=== PATIENT | female | born 1940 | race African-American/Black ===

== ENCOUNTER 2020-07-16 09:19 | Inpatient (IN) | payer MEDICARE, BC, OTHER ==
[2020-07-16] MEDS ORDERED: Ondansetron PF 4 MG/2 ML Vial ONE (09:45)
[2020-07-16 09:55] LABS: Bacteria/HPF None Seen HPF (None Seen); Bilirubin Negative (Negative); Blood, Urine Negative (Negative); Clarity Clear (Clear); Glucose, Urine (Dipstick) Normal (Negative); Ketone, Urine Negative (Negative); Leukocyte 250 Leu/uL (Negative); Nitrite Negative (Negative); Protein, Urine (Dipstick) 100 mg/dL (Neg-Trace); RBC/HPF 0-3 HPF (0-3); Specific Gravity, Urine 1.011 (1.002-1.036); Squamous Epithelial 0-3 HPF (0-3); Urobilinogen Normal mg/dL (Less than 2)
[2020-07-16 09:57] LABS: #Eosinphils 0.2 thou/uL (0.0-0.7); #Lymphocytes 2.3 thou/uL (1.20-3.40); #Monocytes 0.2 thou/uL (0.11-0.59); #Neutrophils 2.6 thou/uL (1.40-6.50); %Basophils 0.2 % (0.0-1.0); %Eosinophils 3.8 % (0.0-10.0); %Lymphocytes 43.5 % (21.0-51.0); %Monocytes 3.8 % (0.0-10.0); %Neutrophils 48.8 % (42.0-75.0); Hemoglobin 7.1 g/dL (12.0-16.0); Mean Corpuscular HGB CONC 32.9 g/dL (32.0-36.0); Mean Corpuscular Volume 97.1 fL (78.0-98.0); Mean Platelet Volume 7.9 fL (7.4-10.4); Platelet Count 144 thou/uL (130-400); RBC Distribution Width 16.5 % (11.5-14.5); Red Blood Cell (RBC) Count 2.21 mill/uL (4.20-5.40); White Blood Cell (WBC) Count 5.3 thou/uL (4.8-10.8)
--- NOTE | 2020-07-16 09:57 | CT ---
EXAM: CT brain without contrast HISTORY: Dizziness and fall COMPARISON: None TECHNIQUE: Multiple contiguous axial images were obtained and a CT of the brain without contrast. FINDINGS: Calcifications are seen in the basal ganglia and in the cerebellum bilaterally. The brain i s normal in morphology and attenuation without focal lesions or confluent areas of infarction. There is no evidence of hydrocephalus, intracranial hemorrhage, or extra-axial fluid collection. The calvarium and overlying soft tissues are unremarkable. The visualized paranasal sinuses and masto id air cells are well aerated. IMPRESSION: No evidence of acute intracranial abnormality
[2020-07-16 10:02] LABS: INR-International Normal Ratio 1.5; PTT 45.3 sec (22.9-36.1); Prothrombin Time 18.3 sec (12.0-14.7)
--- NOTE | 2020-07-16 10:04 | RAD ---
EXAM: Single view of the chest HISTORY: Dizziness, nausea, and vomiting COMPARISON: 04/18/2011 FINDINGS: Single view of the chest shows an enlarged cardiomediastinal silhouette. There are diffuse mixed multifocal opacities in the lungs. There may be a small left pleural effusion. No acute osseous abnormality. IMPRESSION: 1. Multifocal infiltrates 2. Small left pleural effusion
[2020-07-16] MEDS ORDERED: Meclizine HCl 25 MG TAB ONE (10:07)
[2020-07-16 10:14] LABS: ALT (SGPT) 9 U/L (8-55); AST (SGOT) 25 U/L (5-34); Albumin 2.8 g/dL (3.4-4.8); Alkaline Phosphatase 43 U/L (40-110); Anion Gap 20 mmol/L (10-20); BUN (Urea Nitrogen) 19 mg/dL (9.8-20.1); Bilirubin, Total 0.5 mg/dL (0.2-1.2); CK (CPK) 34 U/L (29-168); Calc. Creatinine Clearance 0 mL/min (70-130); Calcium 9.4 mg/dL (7.8-10.44); Carbon Dioxide 19 mmol/L (23-31); Chloride 101 mmol/L (98-107); Estimated GFR-MDRD 52; Glucose 189 mg/dL (83-110); Potassium 3.9 mmol/L (3.5-5.1); Sodium 136 mmol/L (136-145)
[2020-07-16 10:35] LABS: Globulin 10.1 g/dL (2.4-3.5); Protein, Total 12.9 g/dL (5.8-8.1)
[2020-07-16] MEDS ORDERED: Ondansetron PF 4 MG/2 ML Vial IVP PRN (14:30)
[2020-07-16] MEDS ORDERED: Acetaminophen 325 MG TAB PO PRN (14:30)
[2020-07-16] MEDS ORDERED: Dextrose 5% in Water 1,000 ML IV PRN (14:39)
[2020-07-16] MEDS ORDERED: HumaLOG 300 UNITS/3 ML VIAL SC PRN (14:39)
[2020-07-16] MEDS ORDERED: Dextrose 50% Abboject 50 ML SYRINGE SLOW IVP PRN (14:39)
[2020-07-16] MEDS ORDERED: GoLYTELY 4,000 ml Bottle PO SCH (18:00)
[2020-07-16 18:09] LABS: Hemoglobin 7.5 g/dL (12.0-16.0)
[2020-07-16 18:10] LABS: Reticulocyte Count 1.6 % (0.5-1.5)
[2020-07-16 18:29] LABS: Iron 34 ug/dL (50-170); Iron Binding Capacity, Total 211 mcg/dL (265-497)
[2020-07-16 18:59] LABS: Ferritin 28.47 ng/mL (10-291)
--- NOTE | 2020-07-16 19:56 | HP ---
CHIEF COMPLAINT: Dizziness. HISTORY OF PRESENT ILLNESS: The patient is a 79-year-old female with past medical history of hypertension, diabetes mellitus, and asthma, who presented to the hospital with complaints of dizziness. The patient stated that over the past week, she has been experiencing easy fatigue with minimal activity. Yesterday, she noticed that she was feeling lightheaded whenever she tried to stand up. The dizziness lasted for few minutes of each episode. She denies shortness of breath, palpitations, chest pain, nausea, or vomiting. The patient stated that she has been experiencing intermittent episodes of black stools over the past month as well. In the ER, the patient was found to be anemic with hemoglobin level of 7.1. Her fecal occult blood test was positive. The patient denied any history of colonoscopy in the past. REVIEW OF SYSTEMS: Negative except as noted above. PAST MEDICAL HISTORY: As noted above. PAST SURGICAL HISTORY: Includes hysterectomy and cholecystectomy. SOCIAL HISTORY: The patient lives with her family. Denies smoking, alcohol, or illicit drug use. FAMILY HISTORY: Noncontributory to the current presentation. ALLERGIES: THE PATIENT IS ALLERGIC TO PENICILLIN. PHYSICAL EXAMINATION: GENERAL: The patient is alert and oriented x3. HEENT: Head is normocephalic and atraumatic. Extraocular muscles are intact. NECK: Supple. CHEST: Clear to auscultation bilaterally. CARDIOVASCULAR: Normal S1, S2. Regular rate and rhythm. No murmurs, rubs, or gallops. ABDOMEN: Soft, nontender, nondistended. NEUROLOGICAL: Nonfocal. ASSESSMENT: 1. Anemia, likely due to GI bleeding. 2. Hypertension. 3. Diabetes mellitus. PLAN: The patient will be admitted to the hospital for further evaluation. We will check hemoglobin level q.6 hours. We will transfuse 1 unit of packed RBC. GI service consulted to evaluate the patient for possible GI bleeding. SCDs for DVT prophylaxis. Reconcile her home medications once they are verified. Job ID: [id number]
--- NOTE | 2020-07-17 00:25 | CON ---
DATE OF CONSULTATION: 07/16/2020 CHIEF COMPLAINT: Dizziness, weakness. HISTORY OF PRESENT ILLNESS: Ms. Blankenship is a 79-year-old woman, who was sent to the emergency room by ambulance after her family found her to be dizzy and weak. She was found in the emergency room to have severe anemia with a hemoglobin of 7.1. She has had no nausea or vomiting with this. No abdominal pain or diarrhea or constipation. No black stools or red stools. She was noted to have Hemoccult-positive stool in the emergency room. She has not been on blood thinners or aspirin. She did have one episode of vomiting early this morning. She has had no chest pain or shortness of breath. Last bowel movement was yesterday evening and was brown and formed. PAST MEDICAL HISTORY: Diabetes mellitus, hypertension, anemia. PAST SURGICAL HISTORY: Hysterectomy, cholecystectomy. FAMILY HISTORY: Negative for GI malignancies. SOCIAL HISTORY: No alcohol, tobacco, or drugs. ALLERGIES: PENICILLIN. MEDICATIONS: At home include metformin and amlodipine. She has not been on NSAIDs. REVIEW OF SYSTEMS: Negative x10 systems reviewed except as stated in history of present illness. PHYSICAL EXAMINATION: VITAL SIGNS: Temperature 98.0, pulse has been in the 105 to 111 range, blood pressure 159/79. GENERAL: She is in no acute distress. Alert and oriented x3. HEENT: Eyes have no scleral icterus. Oropharynx is clear without lesions. No cervical or supraclavicular lymphadenopathy. LUNGS: Clear to auscultation bilaterally. HEART: Slightly tachycardic. S1-S2 without murmur. ABDOMEN: Soft, nontender, and nondistended. Bowel sounds are present. EXTREMITIES: No lower extremity edema. RECTAL: Reveals no stool in the rectal vault. LABORATORY DATA: White blood cell count 5.3, hemoglobin was 7.1 with an MCV of 97, and platelets of 144. Reticulocyte count was 1.6. INR 1.5. Creatinine 1.22. Iron 34, TIBC 211, ferritin 28.4, bilirubin 0.5, AST 25, ALT 9, alkaline phosphatase 43, albumin of 2.8 with a total protein of 12.9 and globulin of 10.1, B12 of 563, folate 10.8. IMPRESSION: 1. Anemia with Hemoccult-positive stool. She was symptomatic with orthostatic symptoms this morning, but otherwise she has had no overt gastrointestinal bleeding. Her iron studies are most consistent with anemia of chronic disease. However, with a ferritin of only 28, iron deficiency cannot be ruled out. Therefore, GI investigation should be performed. Her B12 and folate are normal and her reticulocyte count is elevated. Her MCV is 97. 2. Elevated globulin at 10.1. Multiple myeloma is a consideration. I will check urine protein electrophoresis. 3. Abnormal liver function test. Her albumin is low at 2.8. Her INR is elevated at 1.5 and while her transaminases are normal, her AST is more than twice her ALT which often this ratio is seen with cirrhosis. Her bilirubin and alkaline phosphatase are normal. Her platelets are on the lower end at 144, which could be consistent with portal hypertension. There is no known history of chronic liver disease or risk factors. However, these findings could indicate an underlying cirrhosis. I will check an ultrasound of her liver. Also, we will request viral hepatitis screen. The low albumin could be nutritional or could be related to whatever process is causing this elevated globulin level. RECOMMENDATIONS: 1. EGD and colonoscopy tomorrow. 2. I will check an ultrasound and viral hepatitis screen. 3. Check urine protein electrophoresis. Job ID: [id number]
[2020-07-17 06:39] LABS: Anion Gap 17 mmol/L (10-20); BUN (Urea Nitrogen) 17 mg/dL (9.8-20.1); Calc. Creatinine Clearance 32 mL/min (70-130); Calcium 9.2 mg/dL (7.8-10.44); Carbon Dioxide 25 mmol/L (23-31); Chloride 103 mmol/L (98-107); Estimated GFR-MDRD 48; Glucose 82 mg/dL (83-110); Potassium 3.6 mmol/L (3.5-5.1); Sodium 141 mmol/L (136-145)
[2020-07-17 06:46] LABS: #Eosinphils 0.1 thou/uL (0.0-0.7); #Lymphocytes 1.6 thou/uL (1.20-3.40); #Monocytes 0.3 thou/uL (0.11-0.59); #Neutrophils 2.7 thou/uL (1.40-6.50); %Basophils 0.3 % (0.0-1.0); %Eosinophils 2.4 % (0.0-10.0); %Lymphocytes 34.1 % (21.0-51.0); %Monocytes 5.9 % (0.0-10.0); %Neutrophils 57.3 % (42.0-75.0); Hemoglobin 6.4 g/dL (12.0-16.0); Mean Corpuscular HGB CONC 32.3 g/dL (32.0-36.0); Mean Corpuscular Hemoglobin 31.8 pg (27.0-31.0); Mean Corpuscular Volume 98.2 fL (78.0-98.0); Mean Platelet Volume 7.5 fL (7.4-10.4); Platelet Count 119 thou/uL (130-400); RBC Distribution Width 16.7 % (11.5-14.5); Red Blood Cell (RBC) Count 2.02 mill/uL (4.20-5.40); White Blood Cell (WBC) Count 4.8 thou/uL (4.8-10.8)
[2020-07-17 06:47] LABS: MDiff Complete? YES; Platelet Morphology Comment Appears Decreased; Rouleaux Formation SLIGHT = 1-5 cells (100X) (None Seen)
[2020-07-17] MEDS ORDERED: Calcium Carbonate 500 MG ChewTAB PO PRN (08:04)
[2020-07-17] MEDS ORDERED: Diabetic Tussin 200 MG/10 ML UDCUP PO PRN (08:04)
[2020-07-17] MEDS ORDERED: Loperamide HCl 2 MG CAP PO PRN (08:04)
[2020-07-17] MEDS ORDERED: Ondansetron ODT 4 MG TAB PO PRN (08:04)
[2020-07-17] MEDS ORDERED: Labetalol HCl 100 MG/20 ML VIAL SLOW IVP PRN (08:04)
[2020-07-17] MEDS ORDERED: Bisacodyl 10 MG SUPP PR PRN (08:04)
[2020-07-17] MEDS ORDERED: Senokot S 8.6-50 MG TAB PO PRN (08:04)
[2020-07-17] MEDS ORDERED: Cepastat Lozenges 1 LOZ PO PRN (08:04)
[2020-07-17] MEDS ORDERED: Zolpidem Tartrate 5 MG TAB PO PRN (08:04)
[2020-07-17] MEDS ORDERED: Loratadine 10 MG TAB PO PRN (08:04)
[2020-07-17] MEDS ORDERED: HYDROcodone/Acetaminophen 5/325 mg Tablet PO PRN (08:04)
[2020-07-17] MEDS ORDERED: hydrALAZINE 20 MG/ML VIAL SLOW IVP PRN (08:04)
[2020-07-17] MEDS ORDERED: Sodium Chloride 0.65% Nasal 44 ML BOT EA NARE PRN (08:04)
--- NOTE | 2020-07-17 08:26 | ULT ---
US Hepatic Doppler History: Abnormal liver function tests Comparison: None. Findings: Real-time grayscale color and spectral analysis of the liver was performed. Hepatic echotexture is mildly increased without mass. Normal pulsatility of the aorta and IVC. Portal vein is patent with antegrade flow. Hepatic veins are patent with antegrade flow. Common duct is normal measuring 3 mm. Spleen measures 8 cm in length. Patent splenic artery and vein. Gallbladder not visualized. Impression: Mild hepatic steatosis otherwise normal exam.
[2020-07-17] MEDS: Amlodipine 5 MG TAB PO SCH (08:56)
[2020-07-17] MEDS: Pantoprazole 40 MG VIAL IVP SCH ×2 (08:56→22:06)
[2020-07-17] MEDS ORDERED: Amlodipine 5 MG TAB PO SCH (09:00)
[2020-07-17] MEDS ORDERED: Lidocaine 1% PF 5 ML VIAL ONE (09:27)
[2020-07-17] MEDS ORDERED: PROPOFOL 200 MG/20 ML VIAL ONE (09:27)
--- NOTE | 2020-07-17 10:13 | PDOC.HOSPP ---
- Subjective Encounter Date: 07/17/20 Encounter Time: 07:30 Subjective: Patient is feeling weak fatigue tired, does not have any melena or hematochezia, she had preparation for colonoscopy, - Objective Vital Signs & Weight: Vital Signs (12 hours) Temp Pulse Resp BP Pulse Ox 07/17/20 08:56 86 07/17/20 08:00 98 07/17/20 07:28 98.7 F 86 20 171/88 H 98 07/17/20 04:00 98.2 F 86 18 146/80 H 97 07/17/20 00:00 97.9 F 102 H 16 166/85 H 100 Weight Weight 124 lb I&O: 07/16/20 07/17/20 07/18/20 06:59 06:59 06:59 Intake Total 360 0 Balance 360 0 Result Diagrams: 07/17/20 05:57 07/17/20 05:57 Additional Labs: Accuchecks 07/17/20 04:29 POC Glucose 77 Radiology Reviewed by me: Yes (Right upper quadrant ultrasound showing hepatic steatosis) Hospitalist ROS - Review of Systems Constitutional: reports: weakness, malaise. denies: fever, chills, sweats, other Respiratory: denies: cough, dry, shortness of breath, hemoptysis, SOB with excertion, pleuritic pain, sputum, wheezing, other Cardiovascular: denies: chest pain, palpitations, orthopnea, paroxysmal noc. dyspnea, edema, light headedness, other Gastrointestinal: denies: nausea, vomiting, abdominal pain, diarrhea, constipation, melena, hematochezia, other Genitourinary: denies: dysuria, frequency, incontinence, hematuria, retention, other Musculoskeletal: denies: neck pain, shoulder pain, arm pain, back pain, hand pain, leg pain, foot pain, other Skin: denies: rash, lesions, yrn, bruising, other - Medication Medications: Active Medications Generic Name Dose Route Start Last Admin Trade Name Freq PRN Reason Stop Dose Admin Amlodipine Besylate 5 mg 07/17/20 09:00 07/17/20 08:56 Amlodipine 5 Mg Tab PO 5 mg DAILY MALCOM Administration Pantoprazole Sodium 40 mg 07/17/20 09:00 07/17/20 08:56 Pantoprazole 40 Mg Vial IVP 40 mg Q12HR MALCOM Administration Sodium Chloride 10 ml 07/17/20 09:00 07/17/20 08:56 Flush - Normal Saline 10 Ml Syringe IVF 10 ml Q12HR MALCOM Administration - Exam General Appearance: NAD, awake alert Eye: PERRL, anicteric sclera Eye - other findings: Pale mucous membrane, pale conjunctiva ENT: no oropharyngeal lesions, moist mucosa Neck: supple, symmetric, no JVD, no thyromegaly Heart: RRR, no murmur, no gallops, no rubs Respiratory: no wheezes, no rales, no ronchi Gastrointestinal: soft, non-tender, non-distended, normal bowel sounds Extremities: no clubbing, no edema Skin: normal turgor, no lesions Neurological: no focal deficits Musculoskeletal: normal tone, normal strength Psychiatric: normal affect, normal behavior Hosp A/P (1) Symptomatic anemia Code(s): D64.9 - ANEMIA, UNSPECIFIED Status: Acute Plan: Today her hemoglobin reduced so we will give her 1 unit of blood transfusion, patient is plan for upper endoscopy and colonoscopy, will repeat CBC tomorrow (2) Guaiac positive stools Status: Acute Plan: Patient is already planned for EGD and colonoscopy by GI (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 - HYPERGAMMAGLOBULINEMIA, UNSPECIFIED Status: Acute Plan: Suspected multiple myeloma so we are going to check urine protein electrophoresis and serum protein electrophoresis, will repeat labs tomorrow (4) Chronic kidney disease (CKD), stage III (moderate) Code(s): N18.30 - CHRONIC KIDNEY DISEASE, STAGE 3 UNSPECIFIED Status: Chronic Qualifiers: Chronic kidney disease stage 3 subtype: stage 3a (GFR 45-59) Qualified Code(s): N18.31 - Chronic kidney disease, stage 3a (5) UTI (urinary tract infection) Status: Suspected Qualifiers: Urinary tract infection type: acute cystitis Plan: We will follow-up on culture result, if culture positive then will consider starting antibiotic therapy at this point patient does not have any symptoms associated with UTI - Plan old records reviewed/req Transfuse 1 unit of PRBC and repeat labs tomorrow and follow-up on endoscopy result
[2020-07-17 12:02] LABS: SARS-CoV-2 MS2 Positive; SARS-CoV-2 N Gene Negative; SARS-CoV-2 S Gene Negative; SARS-CoV-2 by NAA Not Detected (NotDetected); SARS-CoV-2 orf1ab Negative
[2020-07-17 12:03] LABS: SARS-CoV-2 MS2 Positive; SARS-CoV-2 N Gene Negative; SARS-CoV-2 S Gene Negative; SARS-CoV-2 by NAA Not Detected (NotDetected); SARS-CoV-2 orf1ab Negative
[2020-07-17] MEDS ORDERED: FLU VACC QS2020-21(65YR UP)/PF 240 MCG/0.7 ML SYRINGE IM ONE (15:30)
[2020-07-17] MEDS ORDERED: Iopamidol-370 76% 500 ML 1 ML ONE (15:54)
[2020-07-17] MEDS ORDERED: Promethazine HCl 25 MG/ML VIAL SLOW IVP PRN (16:38)
[2020-07-17] MEDS ORDERED: Promethazine HCl 25 MG/ML VIAL IM PRN (16:38)
[2020-07-17] MEDS ORDERED: Ondansetron HCl/PF 4 MG/2 ML Vial IVP PRN (16:38)
--- NOTE | 2020-07-17 20:07 | OP ---
DATE OF PROCEDURE: 07/17/2020 PROCEDURES PERFORMED: Esophagogastroduodenoscopy and colonoscopy with snare polypectomy and biopsy and submucosal injection. PREOPERATIVE DIAGNOSES: Anemia and blood in the stool. DESCRIPTION OF PROCEDURE: Informed consent was obtained from the patient. She was sedated with total intravenous anesthesia. The bite block was placed and the endoscope was advanced easily to the second portion of the duodenum and retroflexion was performed in the stomach. The esophagus was normal. The GE junction was normal. The stomach was normal including retroflexed views. The pylorus and first and second portions of the duodenum were normal. The air was suctioned from the stomach. The patient was turned around. Rectal exam was performed and was normal. The colonoscope was advanced to the cecum, where the ileocecal valve and appendiceal orifice were clearly identified. There was a very sharp angulation of flexure around the splenic flexure, which made somewhat technically difficult advancement of the endoscope to the cecum. The preparation quality was good. There was [id number] diverticulosis throughout the colon. I removed a 4 mm polyp from the transverse colon with a cold snare polypectomy. I remove a 7 mm sessile polyp from the transverse colon by cold snare polypectomy. There was a visible vessel protruding looked like it would be high risk for rebleeding in the polypectomy base and therefore I placed a hemoclip directly over the polypectomy base and vessel with good hemostasis confirmed. There was a 3 cm sessile polyp in the distal sigmoid between 20 and 25 cm, which was biopsied multiple times. Tattoo was placed at the distal end of the polyp. Moderate internal hemorrhoids. RECOMMENDATIONS: 1. Await histopathology. 2. Surgical consultation. Job ID: [id number]
--- NOTE | 2020-07-17 22:02 | CT ---
CT OF CHEST AND ABDOMEN AND PELVIS PERFORMED WITH INTRAVENOUS CONTRAST ENHANCEMENT: 07/17/20 HISTORY: Sigmoid colon mass. The lungs are clear of any infiltrative process. Some reticular scarring in the basis. No pulmonary nodules or pleural effusions. There is no significant mediastinal, hilar or axillary lymphadenopathy. The thoracic aorta is normal in caliber. CT OF ABDOMEN PERFORMED WITH CONTRAST ENHANCEMENT: 07/17/20 There are fatty changes of the liver. No discrete mass. The liver is enlarged at 21.6 cm. The spleen is within normal limits. Pancreas shows no mass. The gallbladder has been removed. Right and left adrenal glands are normal. Tiny hypodensities involving the kidneys are statistically most likely small cysts. There is no significant periaortic or mesenteric adenopathy. CT OF PELVIS PERFORMED WITH CONTRAST ENHANCEMENT: There is an umbilical hernia containing bowel without obstruction. There is diverticulosis of the col on. Wall thickening seen in the sigmoid colon region although it is difficult to show a discrete well defined mass. Colon was not opacified with oral contrast Appendix is normal. No significant pelvic l ymphadenopathy. Small subcentimeter deep pelvic nodes are seen. IMPRESSION: 1. Sigmoid colon is not well opacified. It is difficult to show a discrete mass although there a ppears to be more wall thickening distally. There is also diverticular disease noted in the descendin g and sigmoid region. 2. Paraumbilical hernia containing transverse colon, but no obstruction. 3. Fatty changes of the liver which is slightly enlarged. POS: OFF
[2020-07-18 06:14] LABS: #Eosinphils 0.1 thou/uL (0.0-0.7); #Lymphocytes 1.6 thou/uL (1.20-3.40); #Monocytes 0.3 thou/uL (0.11-0.59); #Neutrophils 3.3 thou/uL (1.40-6.50); %Basophils 0.2 % (0.0-1.0); %Eosinophils 2.6 % (0.0-10.0); %Lymphocytes 29.8 % (21.0-51.0); %Monocytes 4.9 % (0.0-10.0); %Neutrophils 62.4 % (42.0-75.0); Hemoglobin 6.7 g/dL (12.0-16.0); Mean Corpuscular HGB CONC 33.8 g/dL (32.0-36.0); Mean Corpuscular Hemoglobin 32.4 pg (27.0-31.0); Mean Platelet Volume 7.1 fL (7.4-10.4); Platelet Count 108 thou/uL (130-400); RBC Distribution Width 16.6 % (11.5-14.5); Red Blood Cell (RBC) Count 2.06 mill/uL (4.20-5.40); White Blood Cell (WBC) Count 5.2 thou/uL (4.8-10.8)
[2020-07-18 06:24] LABS: Albumin 2.4 g/dL (3.4-4.8); Anion Gap 18 mmol/L (10-20); BUN (Urea Nitrogen) 14 mg/dL (9.8-20.1); Bilirubin, Total 1.2 mg/dL (0.2-1.2); Calc. Creatinine Clearance 33 mL/min (70-130); Calcium 8.7 mg/dL (7.8-10.44); Carbon Dioxide 24 mmol/L (23-31); Chloride 100 mmol/L (98-107); Estimated GFR-MDRD 50; Glucose 87 mg/dL (83-110); Potassium 3.5 mmol/L (3.5-5.1); Protein, Total 11.8 g/dL (6.0-8.3); Sodium 138 mmol/L (136-145)
[2020-07-18 06:25] LABS: ALT (SGPT) 9 U/L (8-55); AST (SGOT) 22 U/L (5-34); Alkaline Phosphatase 32 U/L (40-110); Globulin 9.4 g/dL (2.4-3.5)
[2020-07-18] MEDS: Amlodipine 5 MG TAB PO SCH (09:04)
[2020-07-18] MEDS: Pantoprazole 40 MG VIAL IVP SCH ×2 (09:06→20:41)
--- NOTE | 2020-07-18 09:44 | PDOC.HOSPP ---
- Subjective Encounter Date: 07/18/20 Encounter Time: 08:00 Subjective: Patient seen and examined. No new complaints. No overnight events - Objective Vital Signs & Weight: Vital Signs (12 hours) Temp Pulse Resp BP Pulse Ox 07/18/20 09:04 83 07/18/20 08:00 98 07/18/20 04:00 98.6 F 83 18 124/70 98 07/18/20 00:00 98.8 F 86 18 140/76 98 Weight Weight 124 lb I&O: 07/17/20 07/18/20 07/19/20 06:59 06:59 06:59 Intake Total 360 0 240 Balance 360 0 240 Result Diagrams: 07/18/20 05:39 07/18/20 05:39 Additional Labs: Accuchecks 07/18/20 07/17/20 07/17/20 05:29 19:46 11:12 POC Glucose 88 144 H 73 07/16/20 07/16/20 11:55 08:38 POC Glucose 97 113 H Radiology Reviewed by me: Yes (CT abdomen and pelvis noted) Hospitalist ROS - Review of Systems Constitutional: denies: fever, chills, sweats, weakness, malaise, other ENT: denies: ear pain, ear discharge, nose pain, nose discharge, nose congestion, mouth pain, mouth swelling, throat pain, throat swelling, other Respiratory: denies: cough, dry, shortness of breath, hemoptysis, SOB with excertion, pleuritic pain, sputum, wheezing, other Cardiovascular: denies: chest pain, palpitations, orthopnea, paroxysmal noc. d yspnea, edema, light headedness, other Gastrointestinal: denies: nausea, vomiting, abdominal pain, diarrhea, constipation, melena, hematochezia, other Genitourinary: denies: dysuria, frequency, incontinence, hematuria, retention, other Musculoskeletal: denies: neck pain, shoulder pain, arm pain, back pain, hand pain, leg pain, foot pain, other - Medication Medications: Active Medications Generic Name Dose Route Start Last Admin Trade Name Freq PRN Reason Stop Dose Admin Amlodipine Besylate 5 mg 07/17/20 09:00 07/18/20 09:04 Amlodipine 5 Mg Tab PO 5 mg DAILY MALCOM Administration Dextrose/Water 25 gm 07/16/20 14:39 07/17/20 11:40 Dextrose 50% Abboject 50 Ml Syringe SLOW IVP 25 gm PRN PRN Administration Hypoglycemia Pantoprazole Sodium 40 mg 07/17/20 09:00 07/18/20 09:06 Pantoprazole 40 Mg Vial IVP 40 mg Q12HR MALCOM Administration Sodium Chloride 10 ml 07/17/20 09:00 07/18/20 09:06 Flush - Normal Saline 10 Ml Syringe IVF 10 ml Q12HR MALCOM Administration - Exam General Appearance: NAD, awake alert Eye: PERRL, anicteric sclera ENT: normocephalic atraumatic, no oropharyngeal lesions Neck: supple, symmetric, no JVD, no thyromegaly Heart: RRR, no murmur, no gallops, no rubs Respiratory: CTAB, no wheezes, no rales, no ronchi Gastrointestinal: soft, non-tender, non-distended, normal bowel sounds Extremities: no clubbing, no edema Skin: normal turgor, no lesions Neurological: no focal deficits Musculoskeletal: normal tone, normal strength, no muscle wasting Psychiatric: normal affect, normal behavior Hosp A/P (1) Symptomatic anemia Code(s): D64.9 - ANEMIA, UNSPECIFIED Status: Acute (2) Guaiac positive stools Status: Acute (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 - HYPERGAMMAGLOBULINEMIA, UNSPECIFIED Status: Acute (4) Chronic kidney disease (CKD), stage III (moderate) Code(s): N18.30 - CHRONIC KIDNEY DISEASE, STAGE 3 UNSPECIFIED Status: Chronic Qualifiers: Chronic kidney disease stage 3 subtype: stage 3a (GFR 45-59) Qualified Code(s): N18.31 - Chronic kidney disease, stage 3a (5) UTI (urinary tract infection) Status: Suspected Qualifiers: Urinary tract infection type: acute cystitis (6) Colon polyps Code(s): K63.5 - POLYP OF COLON Status: Acute (7) Diverticulosis of colon Code(s): K57.30 - DVRTCLOS OF LG INT W/O PERFORATION OR ABSCESS W/O BLEEDING Status: Acute - Plan old records reviewed/req Today we will transfuse 1 unit of PRBC because hemoglobin has not appropriately improved, CT chest abdomen and pelvis reviewed, general surgery has been consulted We will repeat labs tomorrow Diet advancement as tolerated pending general surgery evaluation.
--- NOTE | 2020-07-18 16:21 | PDOC.GSCN ---
Surgery Consult: HPI - Consult details Date: 07/18/20 Time: 16:19 History of present illness: 07/18/20 16:19 Chief complaint-I hear you are here to fix me History of present illness-the patient is a very pleasant 79-year-old - [place] female with a past medical history significant for hypertension, diabetes, anemia and asthma who presented to the hospital with feelings of fatigue and orthostasis. Over the last several weeks, she states that she has felt tired and has a lack of energy. She thought that this was secondary to just "getting old". On the day of presentation, she was doing housework and felt very dizzy while trying to stand up. She did not have any shortness of breath or palpitations. She denied any chest pain. She may or may not of been having some darker colored stools over the past month. She states she knows that she is chronically anemic. She has never had a colonoscopy before. She denies any abdominal pain. Surgery Consult: ROS - Review of Systems ROS unobtainable: other (Negative for 10 system, two-point per system other than HPI) Surgery Consult: PMH Past Medical History: Hypertension, diabetes, asthma, anemia Past Surgical History: Cholecystectomy, hysterectomy - Past Family History Pertinent family history: No family history of colonic malignancies - Past Social History Smoking Status: Never smoker Alcohol Use: none Drug Use History: none Living Situation: Surgery Consult: Exam - Vital signs Vital signs: Vital Signs - Most Recent Temp Pulse Resp BP Pulse Ox 98.6 F 83 18 124/70 98 07/18/20 04:00 07/18/20 09:04 07/18/20 04:00 07/18/20 04:00 07/18/20 08:00 - Physical Exam Additional exam: General-[no acute distress, well-nourished] Head-[normocephalic, atraumatic] HEENT- [EOMI], [PERRLA] Neck-[trachea midline, supple] Lungs-[grossly clear to auscultation], [normal air movement] Heart-[regular regular], [no murmurs] Abdomen-[soft], [nondistended], [nontender], [normal active bowel sounds] Musculosketal-[full range of motion], [no gross deformity] Psychiatric-[good insight, good judgment] Skin-[good turgor, no jaundice] Neuro- [GCS 15], [CN II-XII intact] Surgery Consult: Meds - Medications Medications: Current Medications Acetaminophen (Acetaminophen 325 Mg Tab) 650 mg PO Q4H PRN PRN Reason: Headache/Fever/Mild Pain (1-3) Hydrocodone Bitart/Acetaminophen (Hydrocodone/Acetaminophen 5/325 Mg Tablet) 1 tab PO Q4H PRN PRN Reason: Moderate Pain (4-6) Amlodipine Besylate (Amlodipine 5 Mg Tab) 5 mg PO DAILY MALCOM Last Admin: 07/18/20 09:04 Dose: 5 mg Documented by: Bisacodyl (Bisacodyl 10 Mg Supp) 10 mg KS DAILYPRN PRN PRN Reason: Constipation Calcium Carbonate (Calcium Carbonate 500 Mg Chewtab) 1,000 mg PO Q4H PRN PRN Reason: Heartburn or Indigestion Dextrose/Water (Dextrose 50% Abboject 50 Ml Syringe) 25 gm SLOW IVP PRN PRN PRN Reason: Hypoglycemia Last Admin: 07/17/20 11:40 Dose: 25 gm Documented by: Glucagon (Glucagon 1 Mg/Ml Vial) 1 mg IM PRN PRN PRN Reason: Hypoglycemia Guaifenesin (Diabetic Tussin 200 Mg/10 Ml Udcup) 200 mg PO Q4H PRN PRN Reason: Cough Hydralazine HCl (Hydralazine 20 Mg/Ml Vial) 10 mg SLOW IVP Q4H PRN PRN Reason: SBP > 180 and HR < 70 Dextrose/Water (D5w) 1,000 mls @ 0 mls/hr IV .Q0M PRN PRN Reason: Hypoglycemia Insulin Human Lispro (Humalog 300 Units/3 Ml Vial) 0 units SC .MODERATE SLIDING SC PRN PRN Reason: Moderate Correctional Scale Labetalol HCl (Labetalol Hcl 100 Mg/20 Ml Vial) 20 mg SLOW IVP Q4H PRN PRN Reason: SBP > 180 and HR >/= 70 Loperamide HCl (Loperamide Hcl 2 Mg Cap) 2 mg PO PRN PRN PRN Reason: Diarrhea/Loose Stools Loratadine (Loratadine 10 Mg Tab) 10 mg PO DAILYPRN PRN PRN Reason: Sinus Symptoms Ondansetron HCl (Ondansetron Pf 4 Mg/2 Ml Vial) 4 mg IVP Q6H PRN PRN Reason: Nausea/Vomiting Ondansetron HCl (Ondansetron Odt 4 Mg Tab) 4 mg PO Q6H PRN PRN Reason: Nausea/Vomiting Pantoprazole Sodium (Pantoprazole 40 Mg Vial) 40 mg IVP Q12HR [facility] Last Admin: 07/18/20 09:06 Dose: 40 mg Documented by: Senna/Docusate Sodium (Senokot S 8.6-50 Mg Tab) 2 tab PO BID PRN PRN Reason: Constipation Sodium Chloride (Sodium Chloride 0.65% Nasal 44 Ml Bot) 0 ml EA NARE QIDPRN PRN PRN Reason: Nasal Congestion Sodium Chloride (Flush - Normal Saline 10 Ml Syringe) 10 ml IVF Q12HR [facility] Last Admin: 07/18/20 09:06 Dose: 10 ml Documented by: Sodium Chloride (Flush - Normal Saline 10 Ml Syringe) 10 ml IVF PRN PRN PRN Reason: Saline Flush Throat Lozenges (Cepastat Lozenges 1 Tommie) 1 tommie PO Q2H PRN PRN Reason: Sore Throat Zolpidem Tartrate (Zolpidem Tartrate 5 Mg Tab) 5 mg PO HSPRN PRN PRN Reason: Insomnia - Allergies Allergies/Adverse Reactions: Allergies Allergy/AdvReac Type Severity Reaction Status Date / Time Penicillins Allergy Rash Verified 07/16/20 15:26 Surgery Consult: Results - Labs Result Diagrams: 07/18/20 05:39 07/18/20 05:39 Lab results: Laboratory Results WBC 5.2 thou/uL (4.8-10.8) 07/18/20 05:39 RBC 2.06 mill/uL (4.20-5.40) L 07/18/20 05:39 Hgb 6.7 g/dL (12.0-16.0) L 07/18/20 05:39 Hct 19.8 % (36.0-47.0) L 07/18/20 05:39 MCV 96.0 fL (78.0-98.0) 07/18/20 05:39 MCH 32.4 pg (27.0-31.0) H 07/18/20 05:39 MCHC 33.8 g/dL (32.0-36.0) 07/18/20 05:39 RDW 16.6 % (11.5-14.5) H 07/18/20 05:39 Plt Count 108 thou/uL (130-400) L 07/18/20 05:39 MPV 7.1 fL (7.4-10.4) L 07/18/20 05:39 Neutrophils % 62.4 % (42.0-75.0) 07/18/20 05:39 Neutrophils % (Manual) Not Reportable 07/17/20 05:57 Lymphocytes % 29.8 % (21.0-51.0) 07/18/20 05:39 Monocytes % 4.9 % (0.0-10.0) 07/18/20 05:39 Eosinophils % 2.6 % (0.0-10.0) 07/18/20 05:39 Basophils % 0.2 % (0.0-1.0) 07/18/20 05:39 Neutrophils # 3.3 thou/uL (1.40-6.50) 07/18/20 05:39 Lymphocytes # 1.6 thou/uL (1.20-3.40) 07/18/20 05:39 Monocytes # 0.3 thou/uL (0.11-0.59) 07/18/20 05:39 Eosinophils # 0.1 thou/uL (0.0-0.7) 07/18/20 05:39 Basophils # 0.0 thou/uL (0.0-0.2) 07/18/20 05:39 Plt Morphology Comment Appears Decreased L 07/17/20 05:57 Rouleaux SLIGHT = 1-5 cells (100X) (None Seen) 07/17/20 05:57 Retic Count 1.6 % (0.5-1.5) H 07/16/20 18:02 Immature Retic Fraction 0.305 Ratio (0.163-0.362) 07/16/20 18:02 PT 18.3 sec (12.0-14.7) H 07/16/20 09:41 INR 1.5 07/16/20 09:41 APTT 45.3 sec (22.9-36.1) H 07/16/20 09:41 Sodium 138 mmol/L (136-145) 07/18/20 05:39 Potassium 3.5 mmol/L (3.5-5.1) 07/18/20 05:39 Chloride 100 mmol/L (98-107) 07/18/20 05:39 Carbon Dioxide 24 mmol/L (23-31) 07/18/20 05:39 Anion Gap 18 mmol/L (-20) 07/18/20 05:39 BUN 14 mg/dL (9.8-20.1) 07/18/20 05:39 Creatinine 1.26 mg/dL (0.6-1.1) H 07/18/20 05:39 Estimated GFR (MDRD) 50 07/18/20 05:39 Glucose 87 mg/dL (83-110) 07/18/20 05:39 POC Glucose 132 mg/dL (70-100) H 07/18/20 12:02 Calcium 8.7 mg/dL (7.8-10.44) 07/18/20 05:39 Iron 34 ug/dL (50-170) L 07/16/20 18:02 TIBC 211 mcg/dL (265-497) L 07/16/20 18:02 Ferritin 28.47 ng/mL (10-291) 07/16/20 18:02 Total Bilirubin 1.2 mg/dL (0.2-1.2) 07/18/20 05:39 AST 22 U/L (5-34) 07/18/20 05:39 ALT 9 U/L (8-55) 07/18/20 05:39 Alkaline Phosphatase 32 U/L (40-110) L 07/18/20 05:39 Creatine Kinase 34 U/L (29-168) 07/16/20 09:41 Troponin I 0.011 ng/mL (< 0.028) 07/16/20 09:41 B-Natriuretic Peptide 79.8 pg/mL (0-100) 07/16/20 09:40 Serum Total Protein 11.8 g/dL (6.0-8.3) H 07/18/20 05:39 Albumin 2.4 g/dL (3.4-4.8) L 07/18/20 05:39 Globulin 9.4 g/dL (2.4-3.5) H 07/18/20 05:39 Albumin/Globulin Ratio 0.3 g/dL (1.2-2.2) L 07/18/20 05:39 Carcinoembryonic Ag 1.11 ng/mL (< or = 5.0) 07/18/20 05:39 Vitamin B12 563 pg/mL (211-911) 07/16/20 18:02 Folate 10.80 ng/mL (7.0-31.4) 07/16/20 18:02 Urine Color Light-Yellow (Yellow) 07/16/20 09:39 Urine Clarity Clear (Clear) 07/16/20 09:39 Urine pH 7.0 (5.0-9.0) 07/16/20 09:39 Ur Specific Boaz 1.011 (1.002-1.036) 07/16/20 09:39 Urine Protein 100 mg/dL (Neg-Trace) A 07/16/20 09:39 Urine Glucose (UA) Normal mg/dL (Negative) 07/16/20 09:39 Urine Ketones Negative mg/dL (Negative) 07/16/20 09:39 Urine Blood Negative (Negative) 07/16/20 09:39 Urine Nitrite Negative (Negative) 07/16/20 09:39 Urine Bilirubin Negative (Negative) 07/16/20 09:39 Urine Urobilinogen Normal mg/dL (Less than 2) 07/16/20 09:39 Ur Leukocyte Esterase 250 Tru/uL (Negative) A 07/16/20 09:39 Urine RBC 0-3 HPF (0-3) 07/16/20 09:39 Urine WBC 7-10 HPF (0-3) A 07/16/20 09:39 Ur Squamous Epith Cells 0-3 HPF (0-3) 07/16/20 09:39 Urine Bacteria None Seen HPF (None Seen) 07/16/20 09:39 B-Hydroxybutyrate 0.33 mmol/L (0.02-0.27) H 07/16/20 09:42 SARS-CoV-2 (PCR) Not Detected (NotDetected) 07/17/20 07:06 Blood Type O POSITIVE 07/16/20 10:56 Antibody Screen NEGATIVE 07/16/20 10:56 Crossmatch See Detail 07/16/20 10:56 - Radiology Interpretation CT scan - abdomen Additional comments: Independently viewed the images of the CT scan of abdomen and pelvis. I also read the radiologist interpretation-difficult to ascertain if there is a prominent sigmoid mass. No evidence of distant metastatic disease Surgery Consult: A/P - Problem (1) Colon polyps Current Visit: Yes Code(s): K63.5 - POLYP OF COLON Status: Acute Assessment and Plan: I spoke with Dr. Leong concerning this patient. She was brought in for orthostasis. She is found to be anemic. On his EGD and colonoscopy, he found a few polyps within the colon, but nothing to overtly explain such a low hemoglobin. 2 polyps were removed and a larger sessile polyp within the sigmoid colon was tattooed as well as biopsy. There is no concern for impending obstruction. CEA is normal. CT scan does not demonstrate metastatic disease. Concerning her colon, once her hemoglobin has been stabilized, she could be discharged with outpatient follow-up. I gave her my contact information. She can follow-up with me next week. Then, we can further discuss setting up an elective sigmoidectomy. I do not think this is an emergency situation and needs to be taken care of with her hemoglobin being so low without a consult from hematology. (2) Symptomatic anemia Current Visit: Yes Code(s): D64.9 - ANEMIA, UNSPECIFIED Status: Acute Assessment and Plan: Looking at her panels, this does not appear to be solely a anemia secondary to blood loss. I think having a hematology consult, potentially as an outpatient this upcoming week, would be in order. Hopefully, we can boost her natural ability to produce red blood cells prior to surgery. Although it is a low blood loss operation, given her age, hemoglobin this low would be worrisome for perioperative cardiac issues. Overall, I think a consult from hematology as an outpatient this week or in the hospital tomorrow with discharge and follow-up with me in clinic would be a reasonable approach to care for this patient. In the meantime, she may have a diet.
--- NOTE | 2020-07-18 18:14 | PRG ---
DATE OF SERVICE: 07/18/2020 SUBJECTIVE: Ms. Blankenship has no abdominal pain. No blood in her stool or other acute complaints. OBJECTIVE: VITAL SIGNS: Temperature is 98.6, pulse 83, blood pressure 124/72. GENERAL: She is in no acute distress. Alert and oriented x3. LUNGS: Clear to auscultation bilaterally. HEART: Regular rate and rhythm without murmur. ABDOMEN: Soft, nontender, and nondistended. Bowel sounds are present. EXTREMITIES: No lower extremity edema. LABORATORY DATA: White blood cell count 5.2, hemoglobin 6.7, and platelets 108. INR 1.5. Creatinine 1.26, albumin 2.4, globulin 9.4. CEA 1.11. IMPRESSION: 1. Anemia. This is likely multifactorial. There is likely some degree of iron deficiency from blood loss from her colon mass. There has been no overt bleeding. 2. Colon mass/large polyp. Biopsies are pending. CT scan of the chest, abdomen, and pelvis shows no signs of metastatic disease. Her CEA is normal. This is in the lower sigmoid colon, above the rectum, and will require surgical resection. 3. Globulin remains significantly elevated. In light of her anemia and hyperglobulinemia and colonic neoplasm requiring surgery, I will request Hematology/Oncology's input tomorrow. Job ID: [id number]
[2020-07-19 05:37] LABS: #Eosinphils 0.2 thou/uL (0.0-0.7); #Lymphocytes 1.6 thou/uL (1.20-3.40); #Monocytes 0.3 thou/uL (0.11-0.59); #Neutrophils 1.8 thou/uL (1.40-6.50); %Basophils 0.4 % (0.0-1.0); %Eosinophils 4.8 % (0.0-10.0); %Lymphocytes 40.9 % (21.0-51.0); %Monocytes 7.9 % (0.0-10.0); Hemoglobin 6.8 g/dL (12.0-16.0); Mean Corpuscular HGB CONC 32.9 g/dL (32.0-36.0); Mean Corpuscular Hemoglobin 31.7 pg (27.0-31.0); Mean Corpuscular Volume 96.2 fL (78.0-98.0); Platelet Count 107 thou/uL (130-400); Red Blood Cell (RBC) Count 2.14 mill/uL (4.20-5.40); White Blood Cell (WBC) Count 3.8 thou/uL (4.8-10.8)
[2020-07-19 05:48] LABS: Anion Gap 18 mmol/L (10-20); BUN (Urea Nitrogen) 19 mg/dL (9.8-20.1); Calc. Creatinine Clearance 30 mL/min (70-130); Calcium 8.9 mg/dL (7.8-10.44); Carbon Dioxide 23 mmol/L (23-31); Chloride 101 mmol/L (98-107); Estimated GFR-MDRD 44; Glucose 107 mg/dL (83-110); Potassium 3.5 mmol/L (3.5-5.1); Sodium 138 mmol/L (136-145)
[2020-07-19] MEDS: Amlodipine 5 MG TAB PO SCH (08:04)
[2020-07-19] MEDS: Pantoprazole 40 MG VIAL IVP SCH ×2 (08:05→20:39)
--- NOTE | 2020-07-19 10:14 | PRG ---
DATE OF SERVICE: 07/19/2020 SUBJECTIVE: Ms. Blankenship reports passing some blood with her bowel movement this morning. She has no abdominal pain or nausea or vomiting. OBJECTIVE: VITAL SIGNS: Temperature is 98.3, pulse 82, and blood pressure 126/75. GENERAL: She is in no acute distress. Alert and oriented x3. LUNGS: Clear to auscultation bilaterally. HEART: Regular rate and rhythm without murmur. ABDOMEN: Soft, nontender, and nondistended. Bowel sounds are present. EXTREMITIES: No lower extremity edema. LABORATORY DATA: White blood cell count 3.8, hemoglobin 6.8, MCV 96, and platelet count 107. INR 1.5. Creatinine 1.39. IMPRESSION: 1. Anemia. This is likely multifactorial. She did have blood with her stool today, however, this might be secondary to numerous biopsies that are obtained from her large colon polyp/mass. She has not had overt bleeding prior to that. 2. Colon mass, which will ultimately require surgical resection. She has been seen by General Surgery and advised for outpatient followup pending biopsies and further evaluation of her anemia. 3. Hyperglobulinemia. We will await hematology evaluation. RECOMMENDATIONS: 1. Await Hematology/Oncology input. 2. Outpatient General Surgery followup. 3. Await histopathology from her colon mass biopsies. 4. I will sign off for now. She can follow up in GI Clinic. Please call if we can be of assistance. Job ID: [id number]
--- NOTE | 2020-07-19 11:35 | PDOC.HOSPP ---
- Subjective Encounter Date: 07/19/20 Encounter Time: 08:15 Subjective: Patient seen and examined. Patient reported that this morning when she had bowel movements she noticed some blood when she wiped, no overnight events - Objective Vital Signs & Weight: Vital Signs (12 hours) Temp Pulse Resp BP BP Pulse Ox 07/19/20 11:00 98.2 F 89 16 131/64 98 07/19/20 08:04 82 126/75 07/19/20 07:38 98.3 F 82 20 126/75 99 07/19/20 07:24 98.3 F 82 20 126/75 99 07/19/20 04:18 98.2 F 79 18 150/84 H 99 Weight Weight 124 lb I&O: 07/18/20 07/19/20 07/20/20 06:59 06:59 06:59 Intake Total 0 1310 Balance 0 1310 Result Diagrams: 07/19/20 05:07 07/19/20 05:07 Additional Labs: Accuchecks 07/19/20 07/19/20 07/18/20 11:10 04:19 19:26 POC Glucose 116 H 74 104 H 07/18/20 07/18/20 16:29 12:02 POC Glucose 98 132 H Hospitalist ROS - Review of Systems ENT: denies: ear pain, ear discharge, nose pain, nose discharge, nose congestion, mouth pain, mouth swelling, throat pain, throat swelling, other Respiratory: denies: cough, dry, shortness of breath, hemoptysis, SOB with excertion, pleuritic pain, sputum, wheezing, other Cardiovascular: denies: chest pain, palpitations, orthopnea, paroxysmal noc. dyspnea, edema, light headedness, other Gastrointestinal: denies: nausea, vomiting, abdominal pain, diarrhea, constipation, melena, hematochezia, other Genitourinary: denies: dysuria, frequency, incontinence, hematuria, retention, other Musculoskeletal: denies: neck pain, shoulder pain, arm pain, back pain, hand pain, leg pain, foot pain, other - Medication Medications: Active Medications Generic Name Dose Route Start Last Admin Trade Name Freq PRN Reason Stop Dose Admin Amlodipine Besylate 5 mg 07/17/20 09:00 07/19/20 08:04 Amlodipine 5 Mg Tab PO 5 mg DAILY MALCOM Administration Dextrose/Water 25 gm 07/16/20 14:39 07/17/20 11:40 Dextrose 50% Abboject 50 Ml Syringe SLOW IVP 25 gm PRN PRN Administration Hypoglycemia Pantoprazole Sodium 40 mg 07/17/20 09:00 07/19/20 08:05 Pantoprazole 40 Mg Vial IVP 40 mg Q12HR MALCOM Administration Sodium Chloride 10 ml 07/17/20 09:00 07/19/20 08:05 Flush - Normal Saline 10 Ml Syringe IVF 10 ml Q12HR MALCOM Administration - Exam General Appearance: NAD, awake alert Eye: PERRL, anicteric sclera ENT: normocephalic atraumatic, no oropharyngeal lesions Neck: supple, symmetric, no JVD, no thyromegaly Heart: RRR, no murmur, no gallops, no rubs Respiratory: CTAB, no wheezes, no rales, no ronchi, normal chest expansion, no tachypnea, normal percussion Gastrointestinal: soft, non-tender, non-distended, normal bowel sounds Extremities: no cyanosis, no clubbing, no edema Skin: normal turgor, no lesions Neurological: no focal deficits Musculoskeletal: normal tone, normal strength Psychiatric: normal affect, normal behavior Hosp A/P (1) Symptomatic anemia Code(s): D64.9 - ANEMIA, UNSPECIFIED Status: Acute (2) Guaiac positive stools Status: Acute (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 - HYPERGAMMAGLOBULINEMIA, UNSPECIFIED Status: Acute (4) Chronic kidney disease (CKD), stage III (moderate) Code(s): N18.30 - CHRONIC KIDNEY DISEASE, STAGE 3 UNSPECIFIED Status: Chronic Qualifiers: Chronic kidney disease stage 3 subtype: stage 3a (GFR 45-59) Qualified Code(s): N18.31 - Chronic kidney disease, stage 3a (5) UTI (urinary tract infection) Status: Suspected Qualifiers: Urinary tract infection type: acute cystitis (6) Colon polyps Code(s): K63.5 - POLYP OF COLON Status: Acute (7) Diverticulosis of colon Code(s): K57.30 - DVRTCLOS OF LG INT W/O PERFORATION OR ABSCESS W/O BLEEDING Status: Acute - Plan old records reviewed/req Her hemoglobin is also less than 7, I am suspecting that patient may have oozing blood from post polypectomy site, will transfuse 1 unit of PRBC and monitor H&H, Hematology has been consulted for suspected multiple myeloma General surgery recommendation appreciated, patient will need elective sigmoid colectomy as an outpatient basis. Expecting her discharge possibly tomorrow if stable. Discussed with the gastroenterology.
--- NOTE | 2020-07-19 14:27 | RAD ---
Exam: One view left humerus, one view right humerus, lateral view of the cervical spine, AP view of t he cervical spine, lateral view of the calvarium, AP and lateral view of the thoracic spine, AP and lateral view of the lumbar spine, AP view of the pelvis, AP view of the left and right femur, and AP view of the right and left tibia and fibula. HISTORY: Multiple myeloma. FINDINGS: There is no evidence of a lytic or blastic lesion in the axial or appendicular skeleton. There is no evidence of acute fracture. Remote fracture involving the proximal left humerus. Multilevel degenerative changes of the cervical, thoracic and lumbar spine. Note is made of residual contrast in the colon. Nonspecific density projects along the right paraspin al region at approximately the L4-L5 level. This density measures 1.6 cm and is presumed to be external the patient given that is not appreciated on CT 07/17/2020. IMPRESSION: No radiographic evidence of osseous metastases/malignancy. Transcribed Date/Time: 07/19/2020 2:48 PM
[2020-07-19] MEDS ORDERED: Iron, Sodium Ferric Gluconate 250 MG in Sodium Chloride 0.9% 100 ML IVPB SCH (14:45)
--- NOTE | 2020-07-19 20:38 | CON ---
DATE OF CONSULTATION: REASON FOR CONSULTATION: Anemia with elevated protein. HISTORY OF PRESENT ILLNESS: Ms. Gaxiola is a 79-year-old female, who presented to the emergency room on July 16 with complaints of dizziness. She was having fatigue and occasional shortness of breath. She states she was having some black stools. She had a stool guaiac performed, which was positive. Her hemoglobin on arrival was 7.1, white count was normal at 5.3, and platelets were normal at 144. She underwent an endoscopy with snare of two polyps. There was a 3 cm sessile polyp in the distal signal colon between 20 and 25 cm. It was biopsied and a clip was placed. Dr. Song saw the patient and anticipates an outpatient colectomy. Path from the colonoscopy is currently pending. The patient has trended downward on all her counts during this hospital stay, her hemoglobin is currently 6.8, white count 3.8, and platelet count is 107. Her retic count is 1.6. She was also noted to have a high serum total protein of 11.8, which was concerning for multiple myeloma. The patient states she has a history of elevated protein. She has been worked out about 3 or 4 years ago and including a negative bone marrow biopsy. It sounds like she was worked up by Dr. Torres at [facility]. I do not have the results of this workup, but the patient states that it was negative. Iron studies performed on this admission show a low ferritin and serum iron. PAST MEDICAL HISTORY: 1. Hypertension. 2. Diabetes mellitus. 3. Asthma. PAST SURGICAL HISTORY: 1. Hysterectomy. 2. Cholecystectomy. ALLERGIES: PENICILLIN. HOME MEDICATIONS: 1. Multivitamin. 2. Metformin. 3. Amlodipine. FAMILY HISTORY: No history of blood malignancy. Sibling has lung cancer, but smoked. SOCIAL HISTORY: , lives with her family. No alcohol, tobacco, or illicit drug use. REVIEW OF SYSTEMS: A 10-point review of systems is negative except for noted in HPI. PHYSICAL EXAMINATION: VITAL SIGNS: Temperature is 98.2, pulse is 89, respiratory rate 16, BP is 131/64, she is 98% on room air. GENERAL: This is a well-developed, well-nourished female, in no acute distress. HEENT: Normocephalic and atraumatic. Pupils are equal and reactive to light. NECK: Supple. CV: Regular rate and rhythm. LUNGS: Clear. ABDOMEN: Soft and nontender. Bowel sounds are positive. EXTREMITIES: No clubbing or cyanosis. SKIN: No rash. HEMATOLOGIC: No petechiae or purpura. NEUROLOGICAL: Nonfocal. BREAST: No masses, nodules, or skin changes. PERTINENT LABORATORY DATA AND X-RAYS: Current WBCs are 3.8, hemoglobin 6.8, hematocrit 20.6, platelet count of 107,000, 46% neutrophils, 41% lymphocytes, retic count is 1.6. PT is 18.3, INR is 1.5, PTT is 45.3. Sodium 138, potassium 3.5, chloride 101, CO2 is 23, BUN is 9, creatinine 1.39, calcium 8.9. Serum iron is 34, TIBC is 211, ferritin 28. total bilirubin is 1.2, AST is 22, ALT is 9, alkaline phosphatase is 32. Serum total protein 11.8, albumin 2.4, globulin 9.4. B12 and folic acid are normal. CEA is 1.1. IgG is 377, IgA is 4297, IgM is 14. COVID PCR negative. CTA of the abdomen and pelvis showed fatty changes in the liver and a periumbilical hernia. There was diverticular disease. ASSESSMENT: 1. Severe symptomatic anemia. 2. Elevated total protein. 3. Acute on chronic kidney disease. 4. Colon polyps. DISCUSSION: The patient's anemia is multifactorial. She does have a component of bleeding. She has been transfused and we will give her a dose of IV iron. She also has significantly elevated protein with IgA kappa elevation. Her calcium is normal in her bone scan. Her skeletal survey shows no lytic lesions. Her renal function is mild. 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 Agree with serum protein electrophoresis. Will add light chain assay and beta 2 microglobulin. Results will likely not return until after her discharge. She will need to follow up in our clinic to discuss these results and will be routinely followed. She states that she has had a workup for her elevated protein several years ago, which was negative. I do not have access to those records as probably Dr. Sykes's office has been closed. I reassured the patient that if she does have multiple myeloma, she has multiple treatment options. Case has been discussed with Dr. Freeman and we will follow along with her hospital course and see her in the outpatient setting. Thank you for the consult. Job ID: [id number] DANIEL
[2020-07-20 06:23] LABS: Anion Gap 17 mmol/L (10-20); BUN (Urea Nitrogen) 16 mg/dL (9.8-20.1); Calc. Creatinine Clearance 33 mL/min (70-130); Calcium 8.7 mg/dL (7.8-10.44); Carbon Dioxide 23 mmol/L (23-31); Chloride 102 mmol/L (98-107); Estimated GFR-MDRD 51; Glucose 118 mg/dL (83-110); Potassium 3.4 mmol/L (3.5-5.1); Sodium 139 mmol/L (136-145)
[2020-07-20 06:27] LABS: #Eosinphils 0.2 thou/uL (0.0-0.7); #Lymphocytes 1.1 thou/uL (1.20-3.40); #Monocytes 0.3 thou/uL (0.11-0.59); #Neutrophils 1.6 thou/uL (1.40-6.50); %Basophils 0.1 % (0.0-1.0); %Eosinophils 5.2 % (0.0-10.0); %Lymphocytes 35.7 % (21.0-51.0); %Monocytes 8.9 % (0.0-10.0); %Neutrophils 50.2 % (42.0-75.0); Hemoglobin 7.1 g/dL (12.0-16.0); Mean Corpuscular HGB CONC 32.6 g/dL (32.0-36.0); Mean Corpuscular Hemoglobin 31.6 pg (27.0-31.0); Mean Platelet Volume 7.6 fL (7.4-10.4); Platelet Count 93 thou/uL (130-400); RBC Distribution Width 15.8 % (11.5-14.5); Red Blood Cell (RBC) Count 2.23 mill/uL (4.20-5.40); White Blood Cell (WBC) Count 3.2 thou/uL (4.8-10.8)
[2020-07-20 07:17] VITALS: TEMP 98
[2020-07-20] MEDS ORDERED: Potassium Chloride 20 MEQ TAB PO SCH (08:30)
[2020-07-20] MEDS: Amlodipine 5 MG TAB PO SCH (08:32)
[2020-07-20] MEDS: Pantoprazole 40 MG VIAL IVP SCH (08:33)
[2020-07-20] MEDS ORDERED: Polyethylene Glycol 3350 17 GM Packet PO SCH (09:00)
--- NOTE | 2020-07-20 10:35 | PDOC.HOSPP ---
- Subjective Encounter Date: 07/20/20 Encounter Time: 08:00 Subjective: Patient seen and examined. No new complaints. No overnight events - Objective Vital Signs & Weight: Vital Signs (12 hours) Temp Pulse Resp BP Pulse Ox 07/20/20 07:16 98.0 F 82 20 137/72 98 Weight Weight 124 lb I&O: 07/19/20 07/20/20 07/21/20 06:59 06:59 06:59 Intake Total 1310 350 Balance 1310 350 Result Diagrams: 07/20/20 05:25 07/20/20 05:25 Additional Labs: Accuchecks 07/20/20 07/19/20 07/19/20 04:16 19:33 16:20 POC Glucose 73 109 H 83 07/19/20 11:10 POC Glucose 116 H Hospitalist ROS - Review of Systems ENT: denies: ear pain, ear discharge, nose pain, nose discharge, nose congestion, mouth pain, mouth swelling, throat pain, throat swelling, other Respiratory: denies: cough, dry, shortness of breath, hemoptysis, SOB with excertion, pleuritic pain, sputum, wheezing, other Cardiovascular: denies: chest pain, palpitations, orthopnea, paroxysmal noc. dyspnea, edema, light headedness, other Gastrointestinal: denies: nausea, vomiting, abdominal pain, diarrhea, constipation, melena, hematochezia, other Genitourinary: denies: dysuria, frequency, incontinence, hematuria, retention, other Musculoskeletal: denies: neck pain, shoulder pain, arm pain, back pain, hand pain, leg pain, foot pain, other - Medication Medications: Active Medications Generic Name Dose Route Start Last Admin Trade Name Freq PRN Reason Stop Dose Admin Amlodipine Besylate 5 mg 07/17/20 09:00 07/20/20 08:32 Amlodipine 5 Mg Tab PO 5 mg DAILY MALCOM Administration Dextrose/Water 25 gm 07/16/20 14:39 07/17/20 11:40 Dextrose 50% Abboject 50 Ml Syringe SLOW IVP 25 gm PRN PRN Administration Hypoglycemia Pantoprazole Sodium 40 mg 07/17/20 09:00 07/20/20 08:33 Pantoprazole 40 Mg Vial IVP 40 mg Q12HR MALCOM Administration Polyethylene Glycol 17 gm 07/20/20 09:00 10/27/20 08:33 Polyethylene Glycol 3350 17 Gm Packet PO 17 gm DAILY MALCOM Administration Potassium Chloride 40 meq 07/20/20 08:30 07/20/20 08:32 Potassium Chloride 20 Meq Tab PO 07/20/20 12:00 40 meq NOW MALCOM Administration Sodium Chloride 10 ml 07/17/20 09:00 07/20/20 08:40 Flush - Normal Saline 10 Ml Syringe IVF 10 ml Q12HR MALCOM Administration - Exam General Appearance: NAD, awake alert Eye: PERRL, anicteric sclera ENT: normocephalic atraumatic, no oropharyngeal lesions Neck: supple, symmetric, no JVD, no thyromegaly Heart: RRR, no murmur, no gallops, no rubs Respiratory: no wheezes, no rales, no ronchi Gastrointestinal: soft, non-tender, non-distended, normal bowel sounds Extremities: no cyanosis, no clubbing, no edema Skin: normal turgor, no lesions Neurological: no focal deficits Musculoskeletal: normal tone, normal strength Psychiatric: normal affect, normal behavior Hosp A/P (1) Symptomatic anemia Code(s): D64.9 - ANEMIA, UNSPECIFIED Status: Acute (2) Guaiac positive stools Status: Acute (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 - HYPERGAMMAGLOBULINEMIA, UNSPECIFIED Status: Acute (4) Chronic kidney disease (CKD), stage III (moderate) Code(s): N18.30 - CHRONIC KIDNEY DISEASE, STAGE 3 UNSPECIFIED Status: Chronic Qualifiers: Chronic kidney disease stage 3 subtype: stage 3a (GFR 45-59) Qualified Code(s): N18.31 - Chronic kidney disease, stage 3a (5) UTI (urinary tract infection) Status: Suspected Qualifiers: Urinary tract infection type: acute cystitis (6) Colon polyps Code(s): K63.5 - POLYP OF COLON Status: Acute (7) Diverticulosis of colon Code(s): K57.30 - DVRTCLOS OF LG INT W/O PERFORATION OR ABSCESS W/O BLEEDING Status: Acute - Plan old records reviewed/req Patient is overall stable, her hemoglobin is 7.1, no further bleeding, patient will follow up with organizational effectiveness consultant Patient will be discharged home per her request.
[2020-07-20 11:33] VITALS: BP 154/80
[2020-07-20 15:14] LABS: Kappa Lambda Light Chain Ratio 63.25 (0.26-1.65); Kappa Light Chains 278.3 mg/L (3.3-19.4); Lambda Light Chain 4.4 mg/L (5.7-26.3)
[2020-07-20] MEDS ORDERED: Ferrous Sulfate 325 MG TAB PO SCH (17:00)
[2020-07-20 21:12] LABS: Albumin-Ur 61.4 % (.); Alpha 2 - Ur 4.5 % (.); Beta-Ur 10.7 % (.); Gamma-Ur 18.4 % (.); M-Spike,% 7.9 % (Not Observed); Protein, Urine 155.9 mg/dL (Not Estab.)
[2020-07-20 21:12] LABS: A/G Ratio 0.4 (0.7-1.7); Albumin 3.5 g/dL (2.9-4.4); Alpha 1 0.2 g/dL (0.0-0.4); Alpha 2 0.3 g/dL (0.4-1.0); Beta 0.7 g/dL (0.7-1.3); Gamma 6.9 g/dL (0.4-1.8); Globulin, Total 8.1 g/dL (2.2-3.9); M-Spike 6.1 g/dL (Not Observed); Protein Electrophoresis Intrp Note: (.)
[2020-07-21 06:12] LABS: Beta-2-Microglobulin 6.3 mg/L (0.6-2.4)
--- NOTE | 2020-07-21 09:59 | DIS ---
DATE OF ADMISSION: 07/16/2020 DATE OF DISCHARGE: 07/20/2020 PRIMARY CARE PHYSICIAN: Rosanna. DISCHARGE DISPOSITION: Home. PRIMARY DISCHARGE DIAGNOSES: 1. Gastrointestinal bleed. 2. Anemia due to acute blood loss. 3. Diverticulosis of colon. 4. Colon polyps. 5. Symptomatic anemia. 6. Hypergammaglobulinemia. SECONDARY DISCHARGE DIAGNOSES: Chronic kidney disease stage 3. PRIMARY PROCEDURE/OPERATION: Colonoscopy, was performed by Dr. Leong and polyps were removed. RADIOLOGICAL INVESTIGATION: CT brain negative for any acute intracranial process. Chest x-ray normal. CT chest, abdomen, and pelvis showed diverticulosis and colon polyp. Bone survey negative for any osseous metastasis. SIGNIFICANT LABORATORY DATA: WBC 3.2, hemoglobin 7.1, platelets 93. INR 1.5. Sodium 139, potassium 3.4, BUN 16, creatinine 1.24, calcium 8.7. Urinalysis unremarkable. IgA elevated. IgG and IgM low. COVID-19 negative. Stool for guaiac, positive. Urine culture negative. DISCHARGE MEDICATIONS: 1. Ferrous sulfate 325 mg p.o. twice daily. 2. MiraLax 17 g p.o. daily. 3. Amlodipine 5 mg daily. 4. Metformin 500 mg 2 tablets twice daily. CONTRAINDICATION: None. CODE STATUS: Full code. INPATIENT COMPUTER TYPESETTER: Velasquez Leong MD, Gastroenterology was consulted for GI bleed. Oncology was consulted for suspected multiple myeloma. Brien Song MD, General Surgery was consulted for colon polyp. HOSPITAL COURSE: A 79-year-old female who was admitted by Dr. Connelly. Please see his H and P for further details. The patient was having symptomatic anemia. Her hemoglobin on admission was 7.1, and the patient was given total 3 units of blood transfusion while in the hospital. Her hemoglobin is still 7.1, but she does not have any further bleeding. She had hypokalemia, which was replaced. She has hyperproteinemia and that is why we sent a serum protein electrophoresis. Oncology was consulted and they sent further testing with kappa/lambda light chain and beta-2 microglobulin. All results are pending by the time of dictation. The patient's hemoglobin is 7.1 and she wants to go home today. The patient is advised to take ferrous sulfate. The patient will follow up with Hematology. General Surgery was consulted for possible evaluation, and General Surgery recommended that the patient will need elective sigmoid colectomy as an outpatient basis. Overall, the patient is medically stable for discharge. The patient will follow up with the trial consultant as directed. Job ID: [id number]
--- NOTE | 2020-07-22 05:26 | PQF ---
Dear : Ramandeep Lieberman Date 07/22/20 Please exercise your independent, professional judgment in responding to the clarification form. Clinical indicators are provided on the bottom of this form for your review _x__ Final Diagnosis on the Pathology report: Fragments of invasive adenocarcinoma, moderately differentiated Clarification of Pathology report: Please check appropriate box(es): [ x ] Agree w the pathology finding of: invasive adenocarcinoma, moderately differentiated [ ] Other explanation of pathology findings (please specify) [ ] Other diagnosis please specify [ ] Unable to determine Physician Signature: Date/Time: For continuity of documentation, please document condition throughout progress notes and discharge summary. Thank You. To be completed by CDI/Coding staff for physician review: Present Clinical Indicators - Signs / Symptoms / Labs Results and Location in Medical Record [ x ] Sigmoid mass: Fragments of invasive adenocarcinoma, moderately differentiated Pathology report pg.1 [ x ] Dizziness, Weakness Consult pg.1 Dr. Leong [ x ] Hemoccult positive Consult pg.1 Dr. Leong [ x ] Elevated globulin at 10.1. Multiple myeloma is a consideration Consult pg.2 Dr. Leong [ x ] There was a 3 CM sessile polyp in the distal sigmoid colon OP report pg.1 07/17 Present Risk Factors Results and Location in Medical Record [ x ] 79 years old H and P pg.1 [ x ] HTN H and P pg.1 [ x ] DM H and P pg.1 [ x ] Anemia H and P pg.1 [ x ] Sessile polyp OP report pg.1 [ x ] Diverticulosis of colon DS pg.1 [ x ] Acute blood loss anemia DS pg.1 Present Treatments Results and Location in Medical Record [ x ] GI Consult Dr. Leong 07/16 [ x ] EGD OP report pg.1 07/17 [ x ] Snare polypectomy and biopsy OP report pg.1 07/17 [ x ] IV Fluids MAR [ x ] Abdomen ultrasound 07/17 [ x ] Chest/Abdomen/pelvis CT 07/17 [ x ] Oncology Consult Dr. Coleman 07/19 CDS/Blanking Press Operator Signature: Hu Bernal Phone #: ext [phone] Date 07/22/20 [facility]
--- NOTE | 2020-07-22 20:57 | PQF ---
Dear : Ramandeep Lieberman Date 07/22/20 Please exercise your independent, professional judgment in responding to the clarification form. Clinical indicators are provided on the bottom of this form for your review Can you please further clarify the etiology of GI Bleeding? Please check appropriate box(es): [ ] Diverticulosis of the colon [ x ] Sigmoid colon cancer [ x ] Internal hemorrhoids [ ] Other diagnosis please specify [ ] Unable to determine Physician Signature: Date/Time: For continuity of documentation, please document condition throughout progress notes and discharge summary. Thank You. To be completed by CDI/Coding staff for physician review: Present Clinical Indicators - Signs / Symptoms / Labs Results and Location in Medical Record [ x ] Experiencing intermittent episodes of black tarry stools over the past month H and P pg.1 [ x ] Anemia likely due top GI bleeding H and P pg.3 [ x ] Moderate internal hemorrhoids OP report pg.1 [ x ] Guaiac positive stool Hospitalist PN pg.3 [ x ] Colon mass, which will ultimately require surgical resection PN 07/19 pg.1 [ x ] Sigmoid mass: invasive adenocarcinoma, moderate differentiated Path report 07/19 Present Risk Factors Results and Location in Medical Record [ x ] 79 years old H and P pg.1 [ x ] HTN H and P pg.1 [ x ] DM H and P pg.1 [ x ] Anemia H and P pg.1 [ x ] Colon polyp Hospitalist PN pg.4 [ x ] Hyperglobulinemia PN 07/19 pg.1 Present Treatments Results and Location in Medical Record [ x ] EGD OP report pg.1 [ x ] Polypectomy OP report pg.1 [ x ] IV Fluids OP report pg.1 [ x ] Abdomen ultrasound 07/17 Abdomen ultrasound 07/17 [ x ] GI Consult Dr. Leong 07/17 [ x ] CT/Pelvis Abdomen CT/Pelvis Qthmpcx74/24 [ x ] Blood transfusion Blood bank [ x ] General surgery Consult Dr. Song 07/18 [ x ] Oncology Consult [place] 07/19 CDS/Sem Manager Signature: Hu Bernal Phone #: ext [phone] Date 07/22/20 This is a permanent part of the Medical Record MTDD
== END 2020-07-20 12:00 | disposition home or self-care (01) | DRG 375 ==
LOC: ERS 09:19 → T4-A 12:11
PROVIDERS: ADMIT Internal Medicine; ATTEND Internal Medicine
PROC: 30233N1 Transfusion of Nonautologous Red Blood Cells into Peripheral Vein, Percutaneous Approach (ICD-10-PCS; principal; 2020-07-17)
PROC: 0DBL8ZZ Excision of Transverse Colon, Via Natural or Artificial Opening Endoscopic (ICD-10-PCS; 2020-07-17)
PROC: 0DJ08ZZ Inspection of Upper Intestinal Tract, Via Natural or Artificial Opening Endoscopic (ICD-10-PCS; 2020-07-17)
DX: C18.7 Malignant neoplasm of sigmoid colon (principal); D62 Acute posthemorrhagic anemia; N17.9 Acute kidney failure, unspecified; K64.8 Other hemorrhoids; K57.30 Diverticulosis of large intestine without perforation or abscess without bleeding; Z20.828 Contact with and (suspected) exposure to other viral communicable diseases; D89.2 Hypergammaglobulinemia, unspecified; N18.31 Chronic kidney disease, stage 3a; E87.6 Hypokalemia; D12.3 Benign neoplasm of transverse colon; I12.9 Hypertensive chronic kidney disease with stage 1 through stage 4 chronic kidney disease, or unspecified chronic kidney disease; E11.22 Type 2 diabetes mellitus with diabetic chronic kidney disease; J45.909 Unspecified asthma, uncomplicated; Z90.710 Acquired absence of both cervix and uterus; Z88.0 Allergy status to penicillin; Z90.49 Acquired absence of other specified parts of digestive tract
CPT/HCPCS: 36415; 36416; 36430; 70450; 71045; 71260; 74177; 76705; 77075; 80048; 80053; 81003; 81015; 82010; 82232; 82274; 82378; 82550; 82607; 82728; 82746; 83540; 83550; 83880; 83883; 84165; 84166; 84484; 85025; 85046; 85610; 85730; 86850; 86900; 86901; 87086; 87635; 88305; 93005; C9113; J2405; J2704; J2916; J3490; P9016; Q9967; U0003

== ENCOUNTER 2020-07-26 16:56 | Observation (INO) | payer BC ==
[2020-07-26 18:14] LABS: #Basophils 0.1 thou/uL (0.0-0.2); #Eosinphils 0.1 thou/uL (0.0-0.7); #Lymphocytes 1.6 thou/uL (1.20-3.40); #Monocytes 0.3 thou/uL (0.11-0.59); #Neutrophils 1.6 thou/uL (1.40-6.50); %Basophils 1.6 % (0.0-1.0); %Eosinophils 3.3 % (0.0-10.0); %Lymphocytes 42.7 % (21.0-51.0); %Monocytes 8.7 % (0.0-10.0); %Neutrophils 43.7 % (42.0-75.0); Mean Corpuscular HGB CONC 33.1 g/dL (32.0-36.0); Mean Corpuscular Hemoglobin 32.6 pg (27.0-31.0); Mean Corpuscular Volume 98.5 fL (78.0-98.0); Mean Platelet Volume 8.1 fL (7.4-10.4); Platelet Count 125 thou/uL (130-400); RBC Distribution Width 16.6 % (11.5-14.5); Red Blood Cell (RBC) Count 2.14 mill/uL (4.20-5.40); White Blood Cell (WBC) Count 3.7 thou/uL (4.8-10.8)
[2020-07-26 18:19] LABS: INR-International Normal Ratio 1.2; Prothrombin Time 15.5 sec (12.0-14.7)
[2020-07-26 18:20] LABS: PTT 59.4 sec (22.9-36.1)
[2020-07-26 18:43] LABS: Albumin 2.7 g/dL (3.4-4.8)
[2020-07-26 18:45] LABS: Calcium 9.2 mg/dL (7.8-10.44); Chloride 100 mmol/L (98-107); Potassium 4.1 mmol/L (3.5-5.1); Sodium 137 mmol/L (136-145)
[2020-07-26 18:46] LABS: Glucose 97 mg/dL (83-110)
[2020-07-26 18:47] LABS: Anion Gap 17 mmol/L (10-20); Carbon Dioxide 24 mmol/L (23-31)
[2020-07-26 18:48] LABS: Bilirubin, Total 0.4 mg/dL (0.2-1.2)
[2020-07-26 18:49] LABS: Alkaline Phosphatase 35 U/L (40-110); Calc. Creatinine Clearance 0 mL/min (70-130); Estimated GFR-MDRD 46
[2020-07-26 18:50] LABS: BUN (Urea Nitrogen) 20 mg/dL (9.8-20.1)
[2020-07-26 18:51] LABS: AST (SGOT) 22 U/L (5-34)
[2020-07-26 18:52] LABS: ALT (SGPT) 11 U/L (8-55)
[2020-07-26 19:45] LABS: Globulin 9.3 g/dL (2.4-3.5); Protein, Total Greater than 12.0 g/dL (6.0-8.3)
[2020-07-26] MEDS ORDERED: HumaLOG 300 UNITS/3 ML VIAL SC PRN (21:21)
[2020-07-26] MEDS ORDERED: Dextrose 50% Abboject 50 ML SYRINGE SLOW IVP PRN (21:21)
[2020-07-26] MEDS ORDERED: Dextrose 5% in Water 1,000 ML IV PRN (21:21)
[2020-07-26] MEDS ORDERED: Metoprolol Tartrate 5 MG/5 ML VIAL IVP PRN (21:22)
[2020-07-26 22:17] LABS: Hemoglobin 6.9 g/dL (12.0-16.0)
[2020-07-26 22:19] VITALS: BMI 20.3
--- NOTE | 2020-07-27 05:36 | HP ---
REASON FOR ADMISSION: Bleeding from the mouth. HISTORY OF PRESENT ILLNESS: This is a 79-year-old female patient who is presenting with continuous bleeding from her oral cavity. History going back to the day of her presentation. Patient denies any trauma to the mouth. No recent dental work. She was recently discharged from here approximately 5 days ago. She was being worked up for anemia and was supposed to follow with Hematology and scheduled for a transfusion in a.m. Also to follow with Surgery concerning a colonic polyp that needs to be removed. Patient is currently in the ER, continues to have episodes of bleeding. Denies any distress. I did review her records and I see that she was in our hospital, admitted on July 16, and stayed in the hospital for 4 days. Her diagnosis was gastrointestinal bleed and anemia. She was given total of 3 units of blood. Last hemoglobin was 7.1. Oncology was consulted. She was started on iron. Surgery did see her and they recommended that she would need elective sigmoid colectomy as an outpatient. PAST MEDICAL HISTORY: 1. High blood pressure. 2. Diabetes type 2. 3. Asthma. 4. Status post hysterectomy. 5. Cholecystectomy. 6. Gout. SOCIAL HISTORY: She does not smoke. Does not drink alcohol. FAMILY HISTORY: Negative for coronary artery disease. ALLERGIES: PENICILLIN. REVIEW OF SYSTEMS: All systems reviewed except for the above mentioned, found to be negative. PHYSICAL EXAMINATION: GENERAL: Awake, alert, oriented, does not appear in distress. VITAL SIGNS: Her blood pressure is 154/80, heart rate of 102, temperature is 98.6, saturating 100% room air. HEENT: Head is nontraumatic, normocephalic. Pupils are equal, reactive. Extraocular movements are intact. Nonicteric sclerae. Well injected conjunctivae. Examination of the oral cavity reveals missing premolars, both sides in the lower maxillary area and blood coming out from the left molars area in between. There is no tenderness on examination. NECK: Supple. No adenopathy. No murmur. Thyroid is not palpable. Trachea is midline. No supraclavicular lymphadenopathy. HEART: S1, S2 regular. No murmur. No gallops. No friction rubs. No displacement of PMI. LUNGS: Clear to auscultation bilaterally. No wheezes or rhonchi. No crackles. ABDOMEN: Bowel sounds are positive. Nontender abdomen. No hepatomegaly. EXTREMITIES: No lower extremity edema. No cyanosis. NEUROLOGIC: Cranial nerves 2 through 12 within normal limits. Normal motor function. Normal sensory function. Normal reflexes. LABORATORY DATA: Blood work shows WBC of 3.7, hemoglobin of 7, previous hemoglobin 7.1, and platelets of 125. INR 1.2, PTT 59.4, sodium 137, potassium 4.1, bicarb of 24, creatinine 1.35, baseline creatinine around 1.3, albumin 2.7, globulin 9.3. ASSESSMENT AND PLAN: This is a 79-year-old female patient presenting with bleeding from her gum, unknown etiology. She is not taking aspirin and has not been taking any NSAIDs recently. The patient has been undergoing workup for her anemia with suspicion of multiple myeloma. Also, she does have a colonic polyp that she might require to have a sigmoid resection at some point. ENT: The patient will be admitted for further monitoring. She continues to have bleeding. We will transfuse her and we will ask Maxillofacial Surgery to see her in the morning. I did try to put some gauze tamponade at the bleed, hopefully that will help a bit. The patient will be on aspiration precautions. Cardiac: The patient has high blood pressure. Resume her medications. We will have her on IV Lopressor on as needed basis. Hematology: The patient will be transfused with 1 unit of blood. We will recheck her labs in the morning. For her diabetes, she will be on insulin sliding scale and I will try to reconcile her medication when possible. Since she will be n.p.o., we will be conservative with covering her glycemic levels. For deep venous thrombosis prophylaxis, she will be on SCDs. I did discuss with her code status, she wishes to be full code. Job ID: [id number]
[2020-07-27 06:37] LABS: #Eosinphils 0.1 thou/uL (0.0-0.7); #Lymphocytes 1.4 thou/uL (1.20-3.40); #Monocytes 0.2 thou/uL (0.11-0.59); #Neutrophils 1.5 thou/uL (1.40-6.50); %Basophils 0.5 % (0.0-1.0); %Eosinophils 4.2 % (0.0-10.0); %Lymphocytes 42.6 % (21.0-51.0); %Neutrophils 45.8 % (42.0-75.0); Hemoglobin 7.9 g/dL (12.0-16.0); Mean Corpuscular HGB CONC 33.2 g/dL (32.0-36.0); Mean Corpuscular Hemoglobin 32.3 pg (27.0-31.0); Mean Corpuscular Volume 97.3 fL (78.0-98.0); Mean Platelet Volume 8.2 fL (7.4-10.4); Platelet Count 112 thou/uL (130-400); RBC Distribution Width 15.8 % (11.5-14.5); Red Blood Cell (RBC) Count 2.45 mill/uL (4.20-5.40); White Blood Cell (WBC) Count 3.2 thou/uL (4.8-10.8)
[2020-07-27 06:56] LABS: Anion Gap 18 mmol/L (10-20); BUN (Urea Nitrogen) 16 mg/dL (9.8-20.1); Calc. Creatinine Clearance 41 mL/min (70-130); Calcium 9.3 mg/dL (7.8-10.44); Carbon Dioxide 23 mmol/L (23-31); Chloride 101 mmol/L (98-107); Estimated GFR-MDRD 61; Glucose 77 mg/dL (83-110); Sodium 138 mmol/L (136-145)
[2020-07-27] MEDS: Amlodipine 5 MG TAB PO SCH (08:51)
[2020-07-27] MEDS: Ferrous Sulfate 325 MG TAB PO SCH ×2 (08:52→17:14)
[2020-07-27] MEDS: Polyethylene Glycol 3350 17 GM Packet PO SCH (08:52)
[2020-07-27 12:14] LABS: SARS-CoV-2 MS2 Positive; SARS-CoV-2 N Gene Negative; SARS-CoV-2 S Gene Negative; SARS-CoV-2 by NAA Not Detected (NotDetected); SARS-CoV-2 orf1ab Negative
[2020-07-27 18:11] LABS: Hemoglobin 8.1 g/dL (12.0-16.0)
--- NOTE | 2020-07-27 19:19 | CON ---
DATE OF CONSULTATION: 07/27/2020 HISTORY OF PRESENT ILLNESS: This is a 79-year-old female, who reports intermittent bleeding from her oral cavity for the past 24 hours. She denies any history of recent trauma in the mouth or extraoral or intraoral, no recent dental procedures. She does not report any jaw pain, swelling, drainage, or any symptoms intraorally other than the reported bleeding. She is currently under a workup for anemia with Hematology and was admitted for transfusions and supportive therapy. PAST MEDICAL HISTORY: 1. Hypertension. 2. Type 2 diabetes. 3. Asthma. PAST SURGICAL HISTORY: 1. Cholecystectomy. 2. Hysterectomy. SOCIAL HISTORY: Negative for tobacco, alcohol, or recreational drugs. ALLERGIES: PENICILLIN. REVIEW OF SYMPTOMS: As per HPI, otherwise within normal limits. PHYSICAL EXAMINATION: GENERAL: The patient is awake, alert, and oriented, lying in bed comfortably, in no acute distress. HEENT: Normocephalic and atraumatic. Eyes, ears, and nose within normal limits. Mandibular range of motion within normal limits. Tongue full range of motion. Floor of mouth soft. No active bleeding appreciated intraorally. The patient has generalized decent oral hygiene, but a baseline mild periodontal disease throughout the dentition. There are deep probing depths around the sulcus of the left posterior molar teeth in the maxilla and the mandible with heavy plaque in between her teeth. LABORATORY DATA: White blood cell count 3.2, hemoglobin 7.9, hematocrit 23.8, and platelets 112. PT 15.5 and INR 1.2. ASSESSMENT: This is a 79-year-old female admitted for anemia and intraoral bleeding, which is now hemostatic. PLAN: The patient has generalized periodontal disease intraorally, which represents a chronic area of localized inflammation with heavy plaque accumulation. Her spontaneous bleeding is likely due to this combination of anemia and chronic inflammation in the area. There is no appreciable pathology bony expansion or soft tissue lesions appreciated intraorally. There is no signs consistent with odontogenic abscess at this time either. Recommend that the patient gets a dental cleaning at her general dentist office upon discharge to remove the deep plaque and calculus in these areas to help decrease inflammation and improve active periodontal disease, which would decrease future incidences of intraoral bleeding. Should this become a consistent problem between now and her dental cleaning, the patient could be prescribed tranexamic acid mouth rinse to be used p.r.n. At this time, no oral surgical intervention is indicated based on her clinical presentation. The patient is welcomed to follow up in the oral surgery clinic as needed, but recommended follow up with general dentist for a dental cleaning, will likely improve her situation. Job ID: [id number]
[2020-07-28 03:47] LABS: #Eosinphils 0.1 thou/uL (0.0-0.7); #Lymphocytes 1.4 thou/uL (1.20-3.40); #Monocytes 0.3 thou/uL (0.11-0.59); #Neutrophils 1.5 thou/uL (1.40-6.50); %Basophils 0.5 % (0.0-1.0); %Eosinophils 4.2 % (0.0-10.0); %Lymphocytes 41.3 % (21.0-51.0); %Neutrophils 45.1 % (42.0-75.0); Hemoglobin 7.6 g/dL (12.0-16.0); Mean Corpuscular HGB CONC 33.5 g/dL (32.0-36.0); Mean Corpuscular Hemoglobin 32.5 pg (27.0-31.0); Mean Corpuscular Volume 97.2 fL (78.0-98.0); Mean Platelet Volume 7.3 fL (7.4-10.4); Platelet Count 112 thou/uL (130-400); RBC Distribution Width 15.8 % (11.5-14.5); Red Blood Cell (RBC) Count 2.34 mill/uL (4.20-5.40); White Blood Cell (WBC) Count 3.3 thou/uL (4.8-10.8)
[2020-07-28 04:16] LABS: Anion Gap 16 mmol/L (10-20); BUN (Urea Nitrogen) 14 mg/dL (9.8-20.1); Calc. Creatinine Clearance 39 mL/min (70-130); Calcium 9.1 mg/dL (7.8-10.44); Carbon Dioxide 24 mmol/L (23-31); Chloride 101 mmol/L (98-107); Estimated GFR-MDRD 58; Glucose 83 mg/dL (83-110); Potassium 3.8 mmol/L (3.5-5.1); Sodium 137 mmol/L (136-145)
[2020-07-28] MEDS ORDERED: Ondansetron ODT 4 MG TAB PO PRN (07:51)
[2020-07-28] MEDS ORDERED: metFORMIN 500 MG TAB PO SCH (08:00)
--- NOTE | 2020-07-28 08:06 | PDOC.HOSPP ---
- Subjective Encounter Date: 07/28/20 Encounter Time: 10:00 Subjective: Patient reports on and off bleeding from gums, but not as severe. Used the tranexamic acid swish and spit this AM and no bleeding since. Has an appointment with her hot plate plywood press operator later this morning. - Objective Vital Signs & Weight: Vital Signs (12 hours) Temp Pulse Resp BP BP Pulse Ox 07/28/20 03:44 98.0 F 86 18 138/81 95 07/27/20 23:38 98.3 F 87 16 144/77 H 100 Weight Admit Weight 130 lb Weight 130 lb I&O: 07/27/20 07/28/20 07/29/20 06:59 06:59 06:59 Intake Total 590 1580 Balance 590 1580 Result Diagrams: 07/28/20 03:39 07/28/20 03:39 Additional Labs: Accuchecks 07/28/20 07/27/20 07/27/20 06:19 19:44 16:07 POC Glucose 89 143 H 79 07/27/20 10:59 POC Glucose 164 H Hospitalist ROS - Review of Systems Constitutional: denies: fever, chills ENT: denies: mouth pain Respiratory: denies: cough, shortness of breath Cardiovascular: denies: chest pain, palpitations Gastrointestinal: denies: nausea, vomiting, abdominal pain - Medication Medications: Active Medications Generic Name Dose Route Start Last Admin Trade Name Freq PRN Reason Stop Dose Admin Amlodipine Besylate 5 mg 07/27/20 09:00 07/27/20 08:51 Amlodipine 5 Mg Tab PO 5 mg DAILY MALCOM Administration Ferrous Sulfate 325 mg 07/27/20 08:00 07/27/20 17:14 Ferrous Sulfate 325 Mg Tab PO 325 mg BID-WM MALCOM Administration Metoprolol Tartrate 5 mg 07/26/20 21:22 07/26/20 22:55 Metoprolol Tartrate 5 Mg/5 Ml Vial IVP 5 mg Q6H PRN Administration Hypertension Polyethylene Glycol 17 gm 07/27/20 09:00 07/27/20 08:52 Polyethylene Glycol 3350 17 Gm Packet PO 17 gm DAILY MALCOM Administration - Exam General Appearance: NAD, awake alert ENT: moist mucosa ENT - other findings: no active bleeding or old blood visibl on inspection of mouth and gums Heart: RRR, no murmur, no gallops, no rubs Respiratory: CTAB, no wheezes, no rales, no ronchi Gastrointestinal: soft, non-tender, non-distended, normal bowel sounds Neurological: no focal deficits Psychiatric: normal affect, normal behavior, A&O x 3 Hosp A/P (1) Bleeding gums Status: Acute (2) Periodontal disease Code(s): K05.6 - PERIODONTAL DISEASE, UNSPECIFIED Status: Acute (3) Symptomatic anemia Code(s): D64.9 - ANEMIA, UNSPECIFIED Status: Acute (4) HTN (hypertension) Code(s): I10 - ESSENTIAL (PRIMARY) HYPERTENSION Status: Chronic (5) DM type 2 (diabetes mellitus, type 2) Status: Chronic (6) Asthma Code(s): J45.909 - UNSPECIFIED ASTHMA, UNCOMPLICATED Status: Chronic - Plan H/H stable overnight. [facility] surgery Dr. Avendano recommends getting a good dental cleaning and using Tranexamic acid mouthwash prn bleeding. Can d/c home today.
[2020-07-28] MEDS: Amlodipine 5 MG TAB PO SCH (08:59)
[2020-07-28] MEDS: Ferrous Sulfate 325 MG TAB PO SCH (08:59)
[2020-07-28] MEDS ORDERED: Tranexamic Acid 650 MG TAB FS SCH (09:00)
[2020-07-28] MEDS: Polyethylene Glycol 3350 17 GM Packet PO SCH (09:00)
[2020-07-28 09:20] VITALS: BP 158/78; TEMP 98.3
--- NOTE | 2020-07-29 02:17 | DIS ---
DATE OF ADMISSION: 07/26/2020 DATE OF DISCHARGE: 07/28/2020 PRIMARY CARE PHYSICIAN: Dr. Espana. REASON FOR ADMISSION: Bleeding from her gums. DIAGNOSES AT DISCHARGE: 1. Bleeding from gums, improved. 2. Significant periodontal disease. 3. Anemia. 4. Mild thrombocytopenia. 5. Hypertension. 6. Diabetes mellitus type 2. 7. Asthma. 8. Recent gastrointestinal bleed. PROCEDURES: None. CONSULTATIONS: Oral surgery, Dr. Velasquez Avendano. SUMMARY OF HOSPITAL COURSE: This is a 79-year-old female, who recently had a GI bleed discharged approximately five days prior to admission. She was worked up for anemia, supposed to follow up with Hematology and was supposed to get a transfusion. The patient presented for bleeding for gums after brushing her teeth in the morning. She had multiple clots developed and continuous bleeding though the intensity would come and go. She eventually presented to the hospital, had a hemoglobin drop from previous of 7.1 to in the 6s. She had transfusion in the emergency room. She also had gauze pressed onto the bleeding gums and eventually it did calm down. The patient was monitored in the hospital. She had stable hemoglobin and hematocrit after the transfusion. She did have continued bleeding on and off. Oral Surgery was consulted. They diagnosed her with severe periodontal disease as the source of the bleeding. Recommended going to her dentist to get a significant deep cleaning to help some of it, started healing. They also recommended using as needed tranexamic acid slurries to swish and spit. The patient did use that at the day of discharge, she was not having any bleeding at the time of discharge and she has Hematology/Oncology appointment later this morning. DISCHARGE MANAGEMENT: Discharged home. FOLLOWUP: With Heme-Onc as scheduled with Dr. Espana in [address] Avendano as needed for recurrent persistent bleeding. She is also to see her own dentist for a deep cleaning of her teeth as soon as possible. ACTIVITY: As tolerated. DIET: Diabetic diet. DISCHARGE MEDICATIONS: 1. Tranexamic acid 650 mg tablets to be crushed and put in 50 mL of water and swished in mouth for 2 minutes before spitting out, 40 tablets dispensed to be used every 6 hours as needed for bleeding from the gums. 2. Amlodipine 5 mg daily. 3. Ferrous sulfate 325 mg twice a day. 4. Metformin 1000 mg twice a day. 5. MiraLAX 17 g daily. Job ID: [id number]
== END 2020-07-28 11:00 | disposition home or self-care (01) ==
LOC: ERS 16:56 → INTOOBSV 19:39 → ONC 19:39
PROVIDERS: ADMIT Internal Medicine; ATTEND Emergency Medicine
DX: K06.8 Other specified disorders of gingiva and edentulous alveolar ridge (principal); K05.6 Periodontal disease, unspecified; K03.6 Deposits [accretions] on teeth; D62 Acute posthemorrhagic anemia; D69.6 Thrombocytopenia, unspecified; I10 Essential (primary) hypertension; E11.9 Type 2 diabetes mellitus without complications; J45.909 Unspecified asthma, uncomplicated; M10.9 Gout, unspecified; K63.5 Polyp of colon; Z79.84 Long term (current) use of oral hypoglycemic drugs; Z79.899 Other long term (current) drug therapy; Z88.0 Allergy status to penicillin; Z20.828 Contact with and (suspected) exposure to other viral communicable diseases
CPT/HCPCS: 36415; 36416; 36430; 80048; 80053; 82232; 82248; 82728; 83540; 83550; 83615; 83883; 84100; 84165; 84550; 85025; 85610; 85730; 86334; 86850; 86900; 86901; 86921; 87635; G0378; P9016; U0003

== ENCOUNTER 2020-08-03 10:44 | Outpatient (CLI) | payer BC ==
--- NOTE | 2020-08-03 13:36 | PET ---
PET W CT Whole Body History: Multiple myeloma not having achieved remission Comparison: CT chest, abdomen and pelvis July 17, 2020 Findings: PET/CT was performed from the vertex to the feet after the intravenous administration 10.4 mCi F-18 FDG. Symmetric intracranial uptake. Mucosal thickening of the left maxillary sinus with minimal FDG avidit y. No cervical adenopathy. No FDG avid pulmonary nodule. Non-FDG avid 5 mm pulmonary nodule axial image 140 lateral basal right lower lobe. No mediastinal adenopathy. No axillary nor internal mammary adenopathy. No abnormal uptake within the liver, spleen, nor adrenal glands. At the rectosigmoid junction along the posterior wall appears be an ulcerative mass from 3:00-9:00 wi th SUV max of 29.3. No FDG avid mesorectal lymph nodes. No FDG avid superior rectal lymph nodes. Throughout the skeleton there are no abnormal foci of increased radiotracer uptake to suggest multipl e myeloma. Small calcification is noted within the fat between the lateral wall maxillary sinus and the mandibular ramus. No FDG avidity. No osteolytic foci of the skeleton to indicate myeloma. Old left proximal humerus fracture. Impression: 1. 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 No FDG avid mesorectal or superior rectal lymph nodes. 2. No evidence for active myeloma within the skeleton. 3. Non-FDG avid 5 mm pulmonary nodule lateral basal right lower lobe. Close attention on follow-up CT in 3-6 months is recommended.
== END 2020-08-03 10:45 | disposition home or self-care (01) ==
LOC: PET 10:44
PROVIDERS: ATTEND Internal Medicine Hematology & Oncology
DX: C90.00 Multiple myeloma not having achieved remission (principal); C18.9 Malignant neoplasm of colon, unspecified; K63.89 Other specified diseases of intestine; R91.1 Solitary pulmonary nodule
CPT/HCPCS: 78816; A9552

== ENCOUNTER 2020-08-04 09:19 | Day surgery (SDC) | payer BC ==
[2020-08-03 13:22] VITALS: BMI 20.5
[~2020-08-04 09:19] MED LIST: FLU VACC QS2020-21(65YR UP)/PF 240 MCG/0.7 ML SYRINGE IM ONE
[2020-08-04] MEDS ORDERED: Fentanyl 100 MCG/2 ML VIAL ONE (09:34)
[2020-08-04] MEDS ORDERED: Sodium Bicarbonate 2.5 MEQ/5 ML VIAL ONE (09:34)
[2020-08-04] MEDS ORDERED: Midazolam HCl 2 mg/2 ml Vial ONE (09:34)
[2020-08-04 11:40] VITALS: BP 151/82; TEMP 99.1
--- NOTE | 2020-08-04 14:14 | CT ---
CT-guided bone marrow core biopsy and aspirate Additional history multiple myeloma TECHNIQUE: Informed consent was obtained. Preprocedure CT images were obtained guidance purposes only . Site overlying the left posterior iliac bone was marked. Site was prepped and draped in usual sterile fashion. Buffered 1% lidocaine was measured to the overlying subcutaneous tissues. Under CT f luoroscopic guidance, an on control bone marrow biopsy needle was guided down through the cortex into the marrow space of the posterior left iliac bone. 10 cc sample bone marrow aspirate was obtaine d. Following this a 1 cm core biopsy sample of the trabecular bone of the left posterior iliac was obtained. Patient underwent conscious sedation under guidance of the radiology nurse and received 50 mcg of IV fentanyl and 0.5 mg of IV Versed. The procedure lasted approximately 30 minutes. Patient tolerated the procedure without difficulty. IMPRESSION: Successful CT-guided bone marrow core biopsy and aspirate Transcribed Date/Time: 08/04/2020 2:16 PM
--- NOTE | 2020-08-05 11:04 | CT ---
CT-guided bone marrow core biopsy and aspirate Additional history multiple myeloma TECHNIQUE: Informed consent was obtained. Preprocedure CT images were obtained guidance purposes only . Site overlying the left posterior iliac bone was marked. Site was prepped and draped in usual sterile fashion. Buffered 1% lidocaine was measured to the overlying subcutaneous tissues. Under CT f luoroscopic guidance, an on control bone marrow biopsy needle was guided down through the cortex into the marrow space of the posterior left iliac bone. 10 cc sample bone marrow aspirate was obtaine d. Following this a 1 cm core biopsy sample of the trabecular bone of the left posterior iliac was obtained. Patient underwent conscious sedation under guidance of the radiology nurse and received 50 mcg of IV fentanyl and 0.5 mg of IV Versed. The procedure lasted approximately 30 minutes. Patient tolerated the procedure without difficulty. IMPRESSION: Successful CT-guided bone marrow core biopsy and aspirate Transcribed Date/Time: 08/05/2020 11:04 AM
== END 2020-08-04 12:30 | disposition home or self-care (01) ==
LOC: CT 09:19 → EDSTATUS 10:00 → CT 12:30
PROVIDERS: ATTEND Internal Medicine Hematology & Oncology
PROC: 07DR3ZX Extraction of Iliac Bone Marrow, Percutaneous Approach, Diagnostic (ICD-10-PCS; principal; 2020-08-04)
PROC: 079T3ZX Drainage of Bone Marrow, Percutaneous Approach, Diagnostic (ICD-10-PCS; principal; 2020-08-04)
DX: C90.00 Multiple myeloma not having achieved remission (principal); D64.9 Anemia, unspecified; D69.6 Thrombocytopenia, unspecified; E11.9 Type 2 diabetes mellitus without complications; I10 Essential (primary) hypertension; J45.909 Unspecified asthma, uncomplicated; Z79.84 Long term (current) use of oral hypoglycemic drugs; Z79.899 Other long term (current) drug therapy
CPT/HCPCS: 20225; 77012; 85097; 88121; 88184; 88237; 88305; 88311; 88313; 88341; 88342; J2250; J3010

== ENCOUNTER 2020-08-05 08:58 | Emergency (ER) | payer BC ==
[2020-08-05] MEDS ORDERED: Tranexamic Acid 1,000 MG/10 ML VIAL ONE (09:43)
[2020-08-05 09:50] LABS: #Lymphocytes 1.6 thou/uL (1.20-3.40); #Monocytes 0.2 thou/uL (0.11-0.59); #Neutrophils 1.7 thou/uL (1.40-6.50); %Basophils 0.3 % (0.0-1.0); %Lymphocytes 45.3 % (21.0-51.0); %Monocytes 6.7 % (0.0-10.0); %Neutrophils 46.7 % (42.0-75.0); Hemoglobin 7.1 g/dL (12.0-16.0); Mean Corpuscular HGB CONC 31.2 g/dL (32.0-36.0); Mean Corpuscular Hemoglobin 30.8 pg (27.0-31.0); Mean Corpuscular Volume 98.9 fL (78.0-98.0); Mean Platelet Volume 7.7 fL (7.4-10.4); Platelet Count 112 thou/uL (130-400); RBC Distribution Width 16.6 % (11.5-14.5); White Blood Cell (WBC) Count 3.6 thou/uL (4.8-10.8)
[2020-08-05 09:56] LABS: INR-International Normal Ratio 1.5; Prothrombin Time 18.3 sec (12.0-14.7)
[2020-08-05 09:57] LABS: PTT 58.1 sec (22.9-36.1)
[2020-08-05 10:28] LABS: ALT (SGPT) 8 U/L (8-55); AST (SGOT) 22 U/L (5-34); Albumin 2.6 g/dL (3.4-4.8); Alkaline Phosphatase 32 U/L (40-110); Anion Gap 19 mmol/L (10-20); BUN (Urea Nitrogen) 21 mg/dL (9.8-20.1); Calc. Creatinine Clearance 0 mL/min (70-130); Calcium 9.6 mg/dL (7.8-10.44); Carbon Dioxide 24 mmol/L (23-31); Chloride 100 mmol/L (98-107); Estimated GFR-MDRD 46; Glucose 78 mg/dL (83-110); Potassium 4.3 mmol/L (3.5-5.1); Sodium 139 mmol/L (136-145)
[2020-08-05 11:57] LABS: Globulin 9.4 g/dL (2.4-3.5); Protein, Total Greater than 12.0 g/dL (6.0-8.3)
== END 2020-08-05 16:32 | disposition home or self-care (01) ==
LOC: ERS 08:58
DX: K06.8 Other specified disorders of gingiva and edentulous alveolar ridge (principal); D64.9 Anemia, unspecified; I10 Essential (primary) hypertension; E11.9 Type 2 diabetes mellitus without complications; J45.909 Unspecified asthma, uncomplicated; Z79.84 Long term (current) use of oral hypoglycemic drugs; Z79.899 Other long term (current) drug therapy
CPT/HCPCS: 36415; 36430; 80053; 85025; 85610; 85730; 86850; 86900; 86901; 86921; 99284; P9016